=== PATIENT | male | born 1965 | race Caucasian/White ===

== ENCOUNTER 2016-06-09 14:27 | Inpatient (IN) | payer OTHER ==
[~2016-06-09] VITALS: Ht 175.3 cm; Wt 74.3 kg
[~2016-06-09 14:27] MED LIST: OXYC-57 PO; PANT40TA PO
[2016-06-09] MEDS ORDERED: SODIUM CHLORIDE 0.9% 1000ML 1,000 ML IV STA (14:43)
[2016-06-09] MEDS ORDERED: ALBUT/IPRATROP 3MG/0.5MG NEB 3 ML VIAL INH ONE (14:45)
--- NOTE | 2016-06-09 15:02 | DIAGNOSTIC IMAGING REPORT ---
CHEST ONE VIEW PORTABLE CLINICAL HISTORY: cough, fevers, chills COMPARISON STUDY: No previous studies for comparison. FINDINGS: Diffuse infiltrate of the right mid to lower hemithorax. Parenchymal infiltrate left base. No evidence for cardiac enlargement. IMPRESSION: Bilateral parenchymal infiltrates Electronically signed by: Chan Webster M.D. 06/09/2016 3:01 PM Dictated Date/Time: 06/09/2016 3:01 PM
[2016-06-09 15:29] VITALS: PULSE 82; O2SAT 94
[2016-06-09 15:42] LABS: HEMATOCRIT 38.2 % (42-52); MEAN CELL VOLUME 100.3 fL (80-100); MEAN CORPUSCULAR HEMOGLOBIN 36.2 pg (25-34); MEAN CORPUSCULAR HGB CONC 36.1 g/dl (32-36); MEAN PLATELET VOLUME 10.6 fL (7.4-10.4); PLATELET COUNT 248 K/uL (130-400); RED BLOOD COUNT 3.81 M/uL (4.7-6.1); WHITE BLOOD COUNT 12.28 K/uL (4.8-10.8)
[2016-06-09 16:22] LABS: ALKALINE PHOSPHATASE 291 U/L (45-117); ALT/SGPT 33 U/L (12-78); AST/SGOT 58 U/L (15-37); BLOOD UREA NITROGEN 11 mg/dl (7-18); BUN/CREATININE RATIO 13.6 (10-20); CALCIUM 9.8 mg/dl (8.5-10.1); CARBON DIOXIDE 24 mmol/L (21-32); CHLORIDE 99 mmol/L (98-107); CREATININE 0.84 mg/dl (0.60-1.40); GLUCOSE 120 mg/dl (70-99); MAGNESIUM 1.8 mg/dl (1.8-2.4); POTASSIUM 2.5 mmol/L (3.5-5.1); SODIUM 135 mmol/L (136-145)
[2016-06-09] MEDS ORDERED: LEVAQUIN 750MG / 150ML D5W IV STA (16:27)
[2016-06-09] MEDS ORDERED: MULTI-VITAMIN INFUSION INJ 10 ML, THIAMINE HCL INJ 100 MG, FoLIC ACID INJ 1 MG in SODIU... IV ONE (16:30)
[2016-06-09] MEDS ORDERED: POTASSIUM CHLR 20 MEQ / WTR 20 MEQ in PREMIXED WATER 100 ML IV STA (16:32)
[2016-06-09 16:48] LABS: BASO % 0.3 %; BASO ABS # 0.04 K/uL (0-0.2); COMPLETE YES; DOHLE BODIES 2+; IG% 5.4 %; LYMPH % 9.8 %; MONO % 14.4 %; NEUT % 70.1 %; TOXIC GRANULATION 2+
[2016-06-09] MEDS: POTASSIUM CHLR 10MEQ / WTR IV SCH ×2 (17:23→20:47)
[2016-06-09] MEDS ORDERED: ZOLPIDEM TARTRATE 5 MG TAB PO PRN (17:45)
[2016-06-09] MEDS ORDERED: VANCOMYCIN INJ 1,000 MG in SODIUM CHLORIDE 0.9% 250ML 250 ML IV STA (17:50)
[2016-06-09] MEDS ORDERED: ONDANSETRON INJ 2 MG/ML 2 ML VIAL IV PRN ×2 (18:00)
[2016-06-09] MEDS ORDERED: VANCOMYCIN CONSULT ACTIVE PRN (19:30)
[2016-06-09 19:43] VITALS: BP 181/88; PULSE 81; TEMP 37.1; O2SAT 90; Ht 175.3 cm; Wt 74.3 kg
[2016-06-09] MEDS: POTASSIUM CHLR 10 MEQ / WTR 10 MEQ in PREMIXED WATER 100 ML IV SCH ×2 (19:45→20:47)
--- NOTE | 2016-06-09 19:49 | History and Physical ---
History & Physical Date & Time of Service: Jun 09, 2016 at 19:36 Chief Complaint: Hypokalemia, Vomiting And Diarrhea Primary Care Physician: No Doctor, Assigned History of Present Illness Source: patient, family The patient is a 51-year-old male with significant alcohol dependency, who presents to emergency department with intractable nausea and vomiting, with no significant oral intake over the past several days. He reports 11 pound weight loss. And has had an intermittent productive cough for at least a week. Family History Patient reports no known family medical history. Social History Smoking Status: Current Every Day Smoker Smokeless Tobacco Use: No Alcohol Use: heavy Occupational Status: disabled Immunizations History of Influenza Vaccine: No History of Tetanus Vaccine?: No History of Pneumococcal: No History of Hepatitis B Vaccine: No Multi-Drug Resistant Organisms History of MDRO: No Allergies Coded Allergies: No Known Allergies (Verified Allergy, Unknown, 01/28/08) Home Medications No Active Prescriptions or Reported Meds Review of Systems The patient denies vision change, hearing change, sore throat, fevers, chills, sweats, blood in urine or stool, dysuria, urinary frequency or urgency, lightheadedness, dizziness, headache, memory loss, rash, abnormal bruising or bleeding, imbalance, focal weakness, night sweats, or allergy symptoms. The review of systems is otherwise negative other than for that already noted above, and at least 10 systems have been reviewed. Physical Exam Vital Signs Date Time Temp Pulse Resp B/P Pulse Ox O2 Delivery O2 Flow Rate FiO2 06/09/16 18:37 77 27 94 06/09/16 18:32 72 22 94 06/09/16 18:27 77 18 94 06/09/16 18:22 74 23 95 06/09/16 18:17 74 29 94 06/09/16 18:12 77 20 97 06/09/16 18:07 80 25 93 06/09/16 18:02 77 22 94 06/09/16 17:57 79 18 93 06/09/16 17:52 81 23 93 06/09/16 17:47 83 16 93 06/09/16 17:42 79 30 93 06/09/16 17:37 80 24 92 06/09/16 17:32 84 15 92 06/09/16 17:27 77 27 93 06/09/16 17:22 83 13 92 06/09/16 17:17 86 19 90 06/09/16 17:12 77 23 89 06/09/16 17:07 97 21 88 06/09/16 17:02 84 24 89 06/09/16 16:57 86 28 88 06/09/16 16:52 84 28 89 06/09/16 16:47 91 22 90 06/09/16 16:42 86 27 88 06/09/16 16:37 85 27 88 06/09/16 16:32 89 21 91 06/09/16 16:27 93 39 95 06/09/16 16:22 89 24 95 06/09/16 16:17 87 17 98 06/09/16 16:12 85 20 96 06/09/16 16:07 88 27 97 06/09/16 16:02 85 17 96 06/09/16 15:57 85 24 97 06/09/16 15:52 86 27 98 06/09/16 15:47 89 17 98 06/09/16 15:42 80 18 97 06/09/16 15:41 95 Room Air 06/09/16 15:39 79 06/09/16 15:37 183/90 06/09/16 15:29 82 18 94 Room Air 06/09/16 14:30 37.0 90 20 182/83 91 Room Air The patient is awake, alert and oriented 3, looks disheveled, chronically ill, lying in bed and in no acute distress. HEENT--PERRL, EOMI, mucous membranes and oropharynx dry. Neck--supple, no JVD or bruits, thyroid normal, trachea midline, no adenopathy. Heart--normal S1 and S2, no extra beats, no murmurs, rubs or gallops. Lungs--rhonchi wheezes bilaterally, mild respiratory distress, no accessory muscle use. Abdomen--normal bowel sounds and soft, tympanitic, distended, nontender. Extremities--no cyanosis, clubbing. There is bilaterally 2+ pitting edema. There are good distal pulses b/l. Dermatologic--skin is dry. Neurologic--cranial nerves II through XII grossly intact. Rheumatologic--normal range of motion, nontender, muscles and joints for age Psychiatric--normal affect. Diagnostics Laboratory Results Results Past 24 Hours Test 06/09/16 14:52 Range/Units White Blood Count 12.28 4.8-10.8 K/uL Red Blood Count 3.81 4.7-6.1 M/uL Hemoglobin 13.8 14.0-18.0 g/dL Hematocrit 38.2 42-52 % Mean Corpuscular Volume 100.3 80-100 fL Mean Corpuscular Hemoglobin 36.2 25-34 pg Mean Corpuscular Hemoglobin Concent 36.1 32-36 g/dl Platelet Count 248 130-400 K/uL Mean Platelet Volume 10.6 7.4-10.4 fL Neutrophils (%) (Auto) 70.1 % Lymphocytes (%) (Auto) 9.8 % Monocytes (%) (Auto) 14.4 % Eosinophils (%) (Auto) 0.0 % Basophils (%) (Auto) 0.3 % Neutrophils # (Auto) 8.61 1.4-6.5 K/uL Lymphocytes # (Auto) 1.20 1.2-3.4 K/uL Monocytes # (Auto) 1.77 0.11-0.59 K/uL Eosinophils # (Auto) 0.00 0-0.5 K/uL Basophils # (Auto) 0.04 0-0.2 K/uL RDW Standard Deviation 45.5 36.4-46.3 fL RDW Coefficient of Variation 12.5 11.5-14.5 % Immature Granulocyte % (Auto) 5.4 % Immature Granulocyte # (Auto) 0.66 0.00-0.02 K/uL Nucleated RBC Absolute Count (auto) 0.02 0-0 K/uL Nucleated Red Blood Cells % 0.2 % Toxic Granulation 2+ Dohle Bodies 2+ Sodium Level 135 136-145 mmol/L Potassium Level 2.5 3.5-5.1 mmol/L Chloride Level 99 98-107 mmol/L Carbon Dioxide Level 24 21-32 mmol/L Anion Gap 13.0 3-11 mmol/L Blood Urea Nitrogen 11 7-18 mg/dl Creatinine 0.84 0.60-1.40 mg/dl Est Creatinine Clear Calc Drug Dose 100.7 ml/min Estimated GFR () 115.9 Estimated GFR (Non- 100.0 BUN/Creatinine Ratio 13.6 10-20 Random Glucose 120 70-99 mg/dl Calcium Level 9.8 8.5-10.1 mg/dl Magnesium Level 1.8 1.8-2.4 mg/dl Total Bilirubin 0.5 0.2-1 mg/dl Direct Bilirubin 0.2 0-0.2 mg/dl Aspartate Amino Transf (AST/SGOT) 58 15-37 U/L Alanine Aminotransferase (ALT/SGPT) 33 12-78 U/L Alkaline Phosphatase 291 45-117 U/L Total Creatine Kinase 170 39-308 U/L Troponin I < 0.015 0-0.045 ng/ml Total Protein 7.8 6.4-8.2 gm/dl Albumin 2.5 3.4-5.0 gm/dl Microbiology Results 06/09/16 Blood Culture, Received Pending 06/09/16 Blood Culture, Received Pending 06/09/16 Gram Stain, Received Pending 06/09/16 Sputum Culture, Received Pending Diagnostic Radiology Patient Name: SIVAKUMAR BRANCH JR Unit Number: [id number] Dictated: 06/09/161500 Transcribed: 06/09/16 1501 MS Printed Date/Time: [~ rep prt dt]/[~ rep prt tm] [~ rep ct labl] - [~ rep ct ivnm] [facility] [place] [address] Dictated: 06/09/16 1501 Transcribed: 06/09/16 1501 MS Printed Date/Time: [~ rep prt dt]/[~ rep prt tm] [~ rep ct labl] - [~ rep ct ivnm] CLINICAL HISTORY: cough, fevers, chills COMPARISON STUDY: No previous studies for comparison. FINDINGS: Diffuse infiltrate of the right mid to lower hemithorax. Parenchymal infiltrate left base. No evidence for cardiac enlargement. IMPRESSION: Bilateral parenchymal infiltrates Electronically signed by: Chan Webster M.D. 06/09/2016 3:01 PM Dictated Date/Time: 06/09/2016 3:01 PM The status of this report is Signed. Draft = Not yet reviewed or approved by Radiologist. Signed = Reviewed and approved by Radiologist. <AttendingPhy></AttendingPhy> <FamilyPhy>No Doctor, Assigned</FamilyPhy> < PrimaryPhy>No Doctor, Assigned</PrimaryPhy> <UnitNumber>[id number]</UnitNumber> <VisitNumber>[id number]</VisitNumber> <PatientName>JOSE CARLOSSIVAKUMAR CAMILO PINEDA</ PatientName> <DateOfBirth>1965</DateOfBirth> <Location>CJUDY</Location> < ServiceDate>06/09/16</ServiceDate> <MNE>ESINDI</MNE> <OrderingPhy>Nghia Hinojosa M.D.</OrderingPhy> <OrderingPhyMNE>f rep ord dr lopez</OrderingPhyMNE> < DictatingPhyMNE>f rep dict dr lopez</DictatingPhyMNE> <CCListMNE>f rep ct jessica</ CCListMNE> <AdmittingPhyMNE>f pt admit dr lopez</AdmittingPhyMNE> <AttendingPhyMNE >f pt attend dr lopez</AttendingPhyMNE> <ConsultingPhyMNE>f pt consult dr lopez</ConsultingPhyMNE> <FamilyPhyMNE>f pt fam dr lopez</FamilyPhyMNE> <OtherPhyMNE>f pt other dr lopez</OtherPhyMNE> < PrimaryPhyMNE>f pt prim care dr lopez</PrimaryPhyMNE> <ReferringPhyMNE>f pt referring dr lopez</ReferringPhyMNE> EKG EKG shows normal sinus rhythm at 83 bpm, there are no acute ST-T changes. Impression Assessment and Plan Bilateral pneumonia with hypoxia--the patient will be admitted to the telemetry unit. Placed on vancomycin IV per renal dosing, Zosyn 3.375 mg IV every 8 hours , levofloxacin 500 mg IV daily, guaifenesin extended release 600 mg by mouth twice a day, Solu-Medrol 40 mg IV every 8 hours, Xopenex with Atrovent nebulizers to use every 6 hours while awake and every 2 hours when necessary. Alcohol abuse--patient reportedly has not had a drink in a few days. He does not appear to be actively going through withdrawal at this point, but will need to be monitored for so. He'll be started on Librium 25 mg by mouth twice a day , lorazepam IV when necessary, will also have when necessary lorazepam available for seizures. He'll be placed on banana bag IV daily, followed by IV fluids. Start clonidine 0.2 mg by mouth twice a day, and Lopressor 5 mg IV every 4 hours when necessary systolic blood pressure greater than 150. Hypokalemia--potassium was 2.5, magnesium was 1.8. Banana bag as noted above, then normal saline with potassium chloride 20 mEq 150 ML's per hour. Magnesium sulfate 1 g IV 1 now, and for standard 10 mEq potassium chloride riders. We' ll follow serial BMP and magnesium levels. Level of Care Telemetry Advanced Directives Existing Advance Directive: No Existing Living Will: No Existing Power of Deflash And Wash Operator: No Resuscitation Status FULL RESUSCITATION VTE Prophylaxis VTE Risk Assessment Done? Y/N: Yes Risk Level: Moderate Given or contraindicated: SCD's
[2016-06-09] MEDS ORDERED: VANCOMYCIN INJ 1,750 MG in SODIUM CHLORIDE 0.9% 500ML 500 ML IV SCH (20:00)
[2016-06-09] MEDS ORDERED: PIPERACILL/TAZOBAC CONSULT ACTIVE PRN (20:00)
[2016-06-09] MEDS ORDERED: METHYLPREDNISOLONE IV 60 MG in SYRINGE 0 ML IV SCH (20:00)
[2016-06-09] MEDS ORDERED: PIPERACILL/TAZOBAC IV 3.375 GM in DEXTROSE 5% 100ML 100 ML IV ONE (20:00)
[2016-06-09] MEDS ORDERED: MAGNESIUM SULFATE 1GM / D5W 1 GM in PREMIXED IN D5W 100 ML IV ONE (20:00)
[2016-06-09] MEDS ORDERED: LORAZEPAM INJ 1 MG in SYRINGE 0.5 ML IV PRN (20:15)
[2016-06-09] MEDS ORDERED: CLONIDINE HCL 0.1 MG TAB PO ONE (20:30)
[2016-06-09] MEDS ORDERED: CHLORDIAZEPOXIDE 25 MG CAP PO ONE (20:30)
[2016-06-09] MEDS: METHYLPREDNISOLONE IV 40 MG in SYRINGE 0 ML IV SCH (20:45)
[2016-06-09] MEDS ORDERED: INFLUENZA ADMINISTRATION CHARGE ONE (20:45)
[2016-06-09] MEDS ORDERED: INFLUENZA VIRUS QUAD VACCINE 0.5 ML SYR IM. ONE (20:45)
[2016-06-09] MEDS: CLONIDINE HCL 0.1 MG TAB PO SCH (20:46)
[2016-06-09] MEDS: GUAIFENESIN 600 MG TABCR PO SCH (20:46)
[2016-06-09] MEDS: CHLORDIAZEPOXIDE 25 MG CAP PO SCH (20:46)
[2016-06-09] MEDS ORDERED: LEVALBUTEROL/IPRATROPIUM NEB INH SCH (21:00)
--- NOTE | 2016-06-09 21:17 | Pharmacy Progress Note ---
Pharmacy Antibiotic Consult Date of Service: Jun 09, 2016. Pharmacy Dosing Scope Pharmacy is consulted to initiate Vancomycin and Zosyn IV dosing therapies for bilateral pneumonia, order appropriate labs and adjust drug dose/frequency. Subjective The patient is a 51 year old male admitted on Jun 09, 2016 at 17:48. Objective Height (Feet): 5 Height (Inches): 9.00 Weight (Kilograms): 71.700 Lab Results (24hrs): Laboratory Tests Test 06/09/16 14:52 BUN/Creatinine Ratio 13.6 Blood Urea Nitrogen 11 mg/dl Creatinine 0.84 mg/dl White Blood Count 12.28 K/uL Red Blood Count 3.81 M/uL Hemoglobin 13.8 g/dL Hematocrit 38.2 % Mean Corpuscular Volume 100.3 fL Mean Corpuscular Hemoglobin 36.2 pg Mean Corpuscular Hemoglobin Concent 36.1 g/dl Platelet Count 248 K/uL Mean Platelet Volume 10.6 fL Neutrophils (%) (Auto) 70.1 % Lymphocytes (%) (Auto) 9.8 % Monocytes (%) (Auto) 14.4 % Eosinophils (%) (Auto) 0.0 % Basophils (%) (Auto) 0.3 % Neutrophils # (Auto) 8.61 K/uL Lymphocytes # (Auto) 1.20 K/uL Monocytes # (Auto) 1.77 K/uL Eosinophils # (Auto) 0.00 K/uL Basophils # (Auto) 0.04 K/uL Micro Results: Item Value Date Time Blood Culture Received 06/09/16 1543 Blood Pending Gram Stain Received 06/09/16 1530 Sputum Expectorated Sputum Pending Blood Culture Received 06/09/16 1452 Blood Pending Recent Pertinent Medications Item Value Date Time Levofloxacin 500 100 ml @ 100 mls/hr 06/09/16 2200 mg/Prmx DAILY@2200/IV Note, pt did NOT receive Levaquin 750mg ordered in the ED Piperacillin Sod/ 115 ml @ 200 mls/hr 06/09/161999 Tazobactam Sod TODAY@2000 ONCE/IV 06/09/162043 3.375 gm/Dextrose Assessment & Plan Pharmacy has been consulted to dose and monitor Vancomycin and Zosyn IV therapies for bilateral pneumonia. VANCOMYCIN Loading dose: Vancomycin 1750 mg (~25mg/kg) IV X 1 dose then: Vancomycin 1250 mg (~18mg/kg) IV every 12 hours. * Estimated P'kinetic levels: ke= 0.0874/hr, t1/2= 8 hrs * Goal trough level estimate: between 15 - 20 mcg/mL. * Trough level has been ordered for: ~30 minutes before the 4th dose. ZOSYN * Zosyn 3.375gm IV x 1 dose, then Zosyn 3.375gm IV every 8 hours extended infusion for bilateral pneumonia and CrCl greater than 20mL/min (CrCl ~100mL/min ). Pharmacy will continue to follow and will adjust dose/frequency as necessary. Thank you
--- NOTE | 2016-06-09 21:44 | EMERGENCY ROOM VISIT NOTE ---
History Report prepared by Linsey: Clair Jones Under the Supervision of: Dr. Nghia Hinojosa M.D. First contact with patient: 14:39 Chief Complaint: FLU LIKE SX Stated Complaint: FLU History of Present Illness The patient is a 51 year old male who presents to the Emergency Room with complaints of a persistent productive cough for the past 4 days. He reports the cough has prevented him from sleeping for the past 3 nights. He has not been able to eat or drink as normal. He reports having shortness of breath and right ear pain at times. He has wheezes, but not after coughing up mucous. He denies any shaking or syncope. He has not taken any medications today. He took Mucinex a couple days ago, but experienced no relief. He drinks alcohol daily, but has not had anything to drink in the last 4 days. He does not drink to the point of blacking out. He is a smoker. Source of History: patient Onset: 4 days ago Position: other (global) Quality: other (productive cough) Timing: other (persistent) Associated Symptoms: + SOB Note: Pt reports right ear pain. Pt denies shaking or syncope. Review of Systems See HPI for pertinent positives & negatives. A total of 10 systems reviewed and were otherwise negative. Past Medical & Surgical Medical Problems: (1) Hypokalemia (2) No Known Active Medical Problems (3) Vomiting and diarrhea Family History Patient reports no known family medical history. Social History Smoking Status: Current Every Day Smoker Alcohol Use: heavy Marital Status: Occupation Status: unemployed Current/Historical Medications No Active Prescriptions or Reported Meds Allergies Coded Allergies: No Known Allergies (Verified Allergy, Unknown, 01/28/08) Physical Exam Vital Signs Date Time Temp Pulse Resp B/P Pulse Ox O2 Delivery O2 Flow Rate FiO2 06/09/16 17:47 83 16 93 06/09/16 17:42 79 30 93 06/09/16 17:37 80 24 92 06/09/16 17:32 84 15 92 06/09/16 17:27 77 27 93 06/09/16 17:22 83 13 92 06/09/16 17:17 86 19 90 06/09/16 17:12 77 23 89 06/09/16 17:07 97 21 88 06/09/16 17:02 84 24 89 06/09/16 16:57 86 28 88 06/09/16 16:52 84 28 89 06/09/16 16:47 91 22 90 06/09/16 16:42 86 27 88 06/09/16 16:37 85 27 88 06/09/16 16:32 89 21 91 06/09/16 16:27 93 39 95 06/09/16 16:22 89 24 95 06/09/16 16:17 87 17 98 06/09/16 16:12 85 20 96 06/09/16 16:07 88 27 97 06/09/16 16:02 85 17 96 06/09/16 15:57 85 24 97 06/09/16 15:52 86 27 98 06/09/16 15:47 89 17 98 06/09/16 15:42 80 18 97 06/09/16 15:41 95 Room Air 06/09/16 15:39 79 06/09/16 15:37 183/90 06/09/16 15:29 82 18 94 Room Air 06/09/16 14:30 37.0 90 20 182/83 91 Room Air Physical Exam GENERAL: Patient is unwell appearing and in minimal distress. HEENT: No acute trauma, normocephalic atraumatic, mucous membranes dry, no nasal congestion, no scleral icterus. NECK: No stridor, no adenopathy, no meningismus, trachea is midline. LUNGS: Tachypneic, dyspneic. Decreased breath sounds in the left lower lobe. Mild wheezing throughout lungs. Productive thick green mucus cough. HEART: Tachycardic rate and regular rhythm. No murmurs, rubs, gallops appreciated. ABDOMEN: Soft, nontender, bowel sounds positive, no masses appreciated, no peritonitis. BACK: No midline tenderness, no CVA tenderness EXTREMITIES: Normal motion all extremities, no cyanosis, no edema. NEUROLOGIC: Alert and oriented, no acute motor or sensory deficits, no focal weakness, cranial nerves grossly intact. SKIN: No rash, no jaundice, no diaphoresis. Medical Decision & Procedures ER Provider Diagnostic Interpretation: X ray results are stated below per my interpretation and the radiologist's interpretation. CHEST ONE VIEW PORTABLE CLINICAL HISTORY: cough, fevers, chills COMPARISON STUDY: No previous studies for comparison. FINDINGS: Diffuse infiltrate of the right mid to lower hemithorax. Parenchymal infiltrate left base. No evidence for cardiac enlargement. IMPRESSION: Bilateral parenchymal infiltrates Electronically signed by: Chan Webster M.D. 06/09/2016 3:01 PM Dictated Date/Time: 06/09/2016 3:01 PM Laboratory Results 06/09/16 14:52 Red Blood Count 3.81, Mean Corpuscular Volume 100.3, Mean Corpuscular Hemoglobin 36.2, Mean Corpuscular Hemoglobin Concent 36.1, Mean Platelet Volume 10.6, Neutrophils (%) (Auto) 70.1, Lymphocytes (%) (Auto) 9.8, Monocytes (%) ( Auto) 14.4, Eosinophils (%) (Auto) 0.0, Basophils (%) (Auto) 0.3, Neutrophils # (Auto) 8.61, Lymphocytes # (Auto) 1.20, Monocytes # (Auto) 1.77, Eosinophils # ( Auto) 0.00, Basophils # (Auto) 0.04 06/09/16 14:52 Test 06/09/16 14:52 White Blood Count 12.28 K/uL (4.8-10.8) Red Blood Count 3.81 M/uL (4.7-6.1) Hemoglobin 13.8 g/dL (14.0-18.0) Hematocrit 38.2 % (42-52) Mean Corpuscular Volume 100.3 fL (80-100) Mean Corpuscular Hemoglobin 36.2 pg (25-34) Mean Corpuscular Hemoglobin Concent 36.1 g/dl (32-36) Platelet Count 248 K/uL (130-400) Mean Platelet Volume 10.6 fL (7.4-10.4) Neutrophils (%) (Auto) 70.1 % Lymphocytes (%) (Auto) 9.8 % Monocytes (%) (Auto) 14.4 % Eosinophils (%) (Auto) 0.0 % Basophils (%) (Auto) 0.3 % Neutrophils # (Auto) 8.61 K/uL (1.4-6.5) Lymphocytes # (Auto) 1.20 K/uL (1.2-3.4) Monocytes # (Auto) 1.77 K/uL (0.11-0.59) Eosinophils # (Auto) 0.00 K/uL (0-0.5) Basophils # (Auto) 0.04 K/uL (0-0.2) RDW Standard Deviation 45.5 fL (36.4-46.3) RDW Coefficient of Variation 12.5 % (11.5-14.5) Immature Granulocyte % (Auto) 5.4 % Immature Granulocyte # (Auto) 0.66 K/uL (0.00-0.02) Nucleated RBC Absolute Count (auto) 0.02 K/uL (0-0) Nucleated Red Blood Cells % 0.2 % Toxic Granulation 2+ Dohle Bodies 2+ Anion Gap 13.0 mmol/L (3-11) Est Creatinine Clear Calc Drug Dose 100.7 ml/min Estimated GFR () 115.9 Estimated GFR (Non- 100.0 BUN/Creatinine Ratio 13.6 (10-20) Calcium Level 9.8 mg/dl (8.5-10.1) Magnesium Level 1.8 mg/dl (1.8-2.4) Total Bilirubin 0.5 mg/dl (0.2-1) Direct Bilirubin 0.2 mg/dl (0-0.2) Aspartate Amino Transf (AST/SGOT) 58 U/L (15-37) Alanine Aminotransferase (ALT/SGPT) 33 U/L (12-78) Alkaline Phosphatase 291 U/L (45-117) Total Creatine Kinase 170 U/L (39-308) Troponin I < 0.015 ng/ml (0-0.045) Total Protein 7.8 gm/dl (6.4-8.2) Albumin 2.5 gm/dl (3.4-5.0) Laboratory results as reviewed by me. Medications Administered Medications (Trade) Dose Ordered Sig/Tiffany Route Start Time Stop Time Status Last Admin Dose Admin Sodium Chloride (Nss 1000ml) 1,000 ml @ 999 mls/hr Q1H1M STAT IV 06/09/16 14:43 06/09/16 15:43 DC 06/09/16 15:39 999 MLS/HR Albuterol/ Ipratropium 12 ml 12 ml ONE ONCE INH 06/09/16 14:45 06/09/16 14:46 DC 06/09/16 14:45 12 ML Multivitamins 10 ml/Thiamine HCl 100 mg/Folic Acid 1 mg/Sodium Chloride 1,011.2 ml @ 500 mls/ hr Q2H2M ONCE IV 06/09/16 16:30 06/09/16 18:31 DC 06/09/16 17:23 500 MLS/HR Potassium Chloride/Prmx (Kcl 10 Meq / Wtr/Premixed Water) 100 ml @ 100 mls/hr TODAY@1700,1800 IV 06/09/16 17:00 06/09/16 18:59 DC 06/09/16 17:23 100 MLS/HR ECG Indication: tachycardia Rate (beats per minute): 83 Rhythm: normal sinus Findings: no acute ischemic change, no ectopy, other (hypertensive changes) ED Course 1440: The patient was evaluated in room C10. A complete history and physical exam was performed. 1443: NSS 1000 ml @ 999 mls/hr IV. 1445: Duoneb 12 ml INH. 1607: I reevaluated the patient. His breathing has improved with the breathing treatment, but he is coughing more. 1627: Levofloxacin 750 mg IV. 1628: I discussed the patient's case with Dr. Tran [facility] - hospitalist. The patient will be evaluated for further treatment and disposition. 1629: Upon reevaluation, the patient is doing well. Discussed results and treatment plan with the patient. He verbalized understanding and agreement with the treatment plan. The patient will be evaluated for further management. 1630: Multivitamins 10 ml/Thiamine HCl 100 mg/Folic Acid 1 mg/Sodium Chloride 1011.2 ml @ 500 mls/hr IV. 1632: Potassium Chloride 20 meq/Prmx 100 ml @ 50 mls/hr IV. Medical Decision Differential: Infectious, Reactive Airway Disease, Pneumonia, Pneumothorax, COPD , CHF, ACS, Pulmonary Embolism, MSK, GI, Dissection, amongst other etiologies entertained. 51 yr old alcoholic with 4 days worsening cough, weight loss, lack of appetite and weakness. Chronically unwell appearing. Fluids and Banana bag given. CXR with bilateral infiltrates, elevated wbc and fevers. Early sepsis though not septic shock. He has severely low K as well. Will need to come in for further treatment and evaluation. Empiric Levaquin given and will likely need further abx given etoh history. K ordered as well. Stable without shock nor meningitis findings. Consults Time Called: 1625 Consulting Physician: Dr. Tran [facility] - hospitalist Returned Call: [phone] Discussed the patient's case. The patient will be evaluated for further treatment and disposition. Impression Primary Impression: Bilateral pneumonia Additional Impressions: Hypokalemia Malnutrition Scribe Attestation The scribe's documentation has been prepared under my direction and personally reviewed by me in its entirety. I confirm that the note above accurately reflects all work, treatment, procedures, and medical decision making performed by me. Departure Information Dispostion Being Evaluated By Hospitalist Prescriptions No Active Prescriptions or Reported Meds Referrals No Doctor, Assigned (PCP) Patient Instructions My [facility] Problem Qualifiers Primary Impression: Bilateral pneumonia Pneumonia type: due to unspecified organism Lung location: lower lobe of lung Qualified Codes: J18.9 - Pneumonia, unspecified organism
[2016-06-09] MEDS: IPRATROPIUM BROMIDE NEB SOLN 0.02% 2.5 ML VIAL INH SCH (21:55)
[2016-06-09] MEDS: LEVALBUTEROL 1.25MG/0.5ML NEB INH SCH (21:55)
[2016-06-09 21:57] VITALS: PULSE 116; O2SAT 97
[2016-06-09] MEDS ORDERED: LEVOFLOXACIN / D5W 500 MG in PREMIXED IN D5W 100 ML IV SCH (22:00)
[2016-06-09 23:11] VITALS: BP 147/70; PULSE 73; TEMP 37.1; O2SAT 95
[2016-06-09] MEDS: LORAZEPAM 2 MG/ML 1 ML VIAL IV PRN (23:17)
[2016-06-10] VITALS (9 sets, daily range): BP systolic 157–180; BP diastolic 70–85; PULSE 58–88; TEMP 36.3–37; O2SAT 93–100
[2016-06-10] MEDS: IPRATROPIUM BROMIDE NEB SOLN 0.02% 2.5 ML VIAL INH SCH ×4 (01:45→20:25)
[2016-06-10] MEDS: LEVALBUTEROL 1.25MG/0.5ML NEB INH SCH ×4 (01:45→20:25)
[2016-06-10] MEDS: PIPERACILL/TAZOBAC IV 3.375 GM in DEXTROSE 5% 100ML 100 ML IV SCH ×2 (02:39→10:22)
[2016-06-10] MEDS: METHYLPREDNISOLONE IV 40 MG in SYRINGE 0 ML IV SCH ×2 (04:51→16:39)
[2016-06-10 07:27] LABS: HEMATOCRIT 34.9 % (42-52); MEAN CORPUSCULAR HEMOGLOBIN 34.8 pg (25-34); MEAN CORPUSCULAR HGB CONC 35.5 g/dl (32-36); MEAN PLATELET VOLUME 10.8 fL (7.4-10.4); PLATELET COUNT 222 K/uL (130-400); RED BLOOD COUNT 3.56 M/uL (4.7-6.1); WHITE BLOOD COUNT 9.54 K/uL (4.8-10.8)
[2016-06-10 07:36] LABS: PARTIAL THROMBOPLASTIN RATIO 1.4; PROTHROMBIN TIME (PATIENT) 10.7 SECONDS (9.0-12.0)
[2016-06-10] MEDS ORDERED: VANCOMYCIN INJ 1,250 MG in SODIUM CHLORIDE 0.9% 250ML 250 ML IV SCH (08:00)
[2016-06-10] MEDS ORDERED: MULTI-VITAMIN INFUSION INJ 10 ML, THIAMINE HCL INJ 100 MG, FoLIC ACID INJ 1 MG in SODIU... IV SCH (08:00)
[2016-06-10 08:13] LABS: BUN/CREATININE RATIO 17.5 (10-20); CALCIUM 8.9 mg/dl (8.5-10.1); CREATININE 0.65 mg/dl (0.60-1.40); MAGNESIUM 2.7 mg/dl (1.8-2.4); POTASSIUM 2.8 mmol/L (3.5-5.1)
[2016-06-10 08:14] LABS: COMPLETE YES; DOHLE BODIES 1+; HYPERSEGMENTED POLYS 1+; LARGE PLATELETS 1+; LYMPH ABS # 1.34 K/uL (1.2-3.4); MYELOCYTE % 0.9 %; TOXIC GRANULATION 2+
[2016-06-10] MEDS: CHLORDIAZEPOXIDE 25 MG CAP PO SCH ×2 (08:20→20:50)
[2016-06-10] MEDS: CEROVITE ADV FORMULA TAB PO SCH (08:23)
[2016-06-10] MEDS: THIAMINE HCL INJ 200 MG in SODIUM CHLORIDE 0.9% 50ML 50 ML IV SCH ×2 (08:24→20:56)
[2016-06-10] MEDS: CLONIDINE HCL 0.1 MG TAB PO SCH ×2 (08:24→20:51)
[2016-06-10] MEDS: GUAIFENESIN 600 MG TABCR PO SCH ×2 (08:24→20:51)
[2016-06-10] MEDS: POTASSIUM CHLORIDE 20 MEQ TABCR PO SCH ×3 (09:30→16:40)
[2016-06-10] MEDS ORDERED: PANTOprazole INJ 40 MG in SYRINGE 0 ML IV SCH (11:00)
[2016-06-10] MEDS ORDERED: NSS + 20MEQ KCL 1000ML 1,000 ML IV SCH (14:00)
[2016-06-10] MEDS ORDERED: ACETYLCYSTEINE IV 21 HOUR REGIMEN IV STA (14:03)
[2016-06-10] MEDS ORDERED: ACETYLCYSTEINE IV ONE ×2 (14:30→15:30)
[2016-06-10] MEDS ORDERED: DEXTROSE 5% IV ONE (14:30)
[2016-06-10] MEDS ORDERED: D5W IV ONE (15:30)
[2016-06-10] MEDS ORDERED: ACETYLCYSTEINE IV SCH (19:30)
[2016-06-10] MEDS ORDERED: D5W IV SCH (19:30)
[2016-06-10] MEDS ORDERED: POTASSIUM CHLR 20 MEQ / WTR 20 MEQ in PREMIXED WATER 100 ML IV STA (19:56)
[2016-06-10] MEDS: POTASSIUM CHLR 10MEQ / WTR IV SCH ×2 (20:18→22:03)
--- NOTE | 2016-06-10 20:18 | Progress Note ---
Subjective Date of Service: Jun 10, 2016. Subjective Pt evaluation today including: conversation w/ patient, physical exam, chart review, lab review, review of studies (cxr), review of inpatient medication list Pain: denies PO Intake: fair Voiding: no voiding problems tele stable overnight he is coughing up copious amounts of purulent sputum reports ongoing alcohol use - liquor he also told nursing staff that he has been taking - for many years - about 15 tabs of Tylenol PM at HS for insomnia he reports significant depression much of it due to having 3 of his 5 children already 1 of his 2 children still living has significant disabilities he is unemployed and cannot find sustainable work he denies any history of etoh withdrawal Problem List Medical Problems: (1) Bilateral pneumonia Status: Acute (2) Malnutrition Status: Acute Review of Systems Constitutional: + fatigue, No chills, No fever Respiratory: + cough, + sputum, + wheezing Cardiac: No PND, No chest pain, No edema, No orthopnea Abdomen: No nausea, No pain, No vomiting Objective Vital Signs Date Time Temp Pulse Resp B/P Pulse Ox O2 Delivery O2 Flow Rate FiO2 06/10/16 19:25 37.0 78 18 180/82 97 Nasal Cannula 2.0 06/10/16 16:00 Nasal Cannula 2.0 06/10/16 16:00 Nasal Cannula 2.0 06/10/16 15:12 36.3 59 18 165/84 95 Nasal Cannula 2.0 06/10/16 14:19 88 16 97 Nasal Cannula 2.0 06/10/16 12:00 Nasal Cannula 2.0 06/10/16 11:59 36.6 65 16 167/82 95 Room Air 06/10/16 08:00 Nasal Cannula 2.0 06/10/16 07:45 36.8 58 24 167/70 100 Nasal Cannula 2.0 06/10/16 06:50 67 14 96 Nasal Cannula 2.0 06/10/16 04:00 Nasal Cannula 2.0 06/10/16 03:24 37.0 61 17 157/72 93 Nasal Cannula 2.0 06/09/16 23:59 Nasal Cannula 2.0 06/09/16 23:11 37.1 73 17 147/70 95 Nasal Cannula 2.0 06/09/16 21:57 116 14 97 Nasal Cannula 3.0 Physical Exam General Appearance: no apparent distress, + pertinent finding (coughing up purulent sputum ) ENT: pharynx normal, + pertinent finding (very poor dentition ) Neck: no JVD Respiratory/Chest: no respiratory distress, no accessory muscle use, + rales ( dense rales right base; mild rales left base), + wheezing (mild end-exp) Cardiovascular: regular rate, rhythm, no gallop, no murmur Abdomen: normal bowel sounds, non tender, soft, no organomegaly Extremities: no pedal edema Neurologic/Psychiatric: alert, oriented x 3, + depressed affect Skin: + pallor Laboratory Results Last 24 Hours Test 06/10/16 07:03 06/10/16 14:20 06/10/16 18:50 White Blood Count 9.54 K/uL Red Blood Count 3.56 M/uL Hemoglobin 12.4 g/dL Hematocrit 34.9 % Mean Corpuscular Volume 98.0 fL Mean Corpuscular Hemoglobin 34.8 pg Mean Corpuscular Hemoglobin Concent 35.5 g/dl Platelet Count 222 K/uL Mean Platelet Volume 10.8 fL RDW Standard Deviation 44.2 fL RDW Coefficient of Variation 12.4 % Neutrophils % (Manual) 79.0 % Lymphocytes % (Manual) 14.0 % Monocytes % (Manual) 6.1 % Myelocytes % 0.9 % Neutrophils # (Manual) 7.54 K/uL Total Absolute Neutrophils 7.54 K/uL Lymphocytes # (Manual) 1.34 K/uL Total Absolute Lymphocytes 1.34 K/uL Monocytes # (Manual) 0.58 K/uL Myelocytes # 0.09 K/uL Hypersegmented Polys 1+ Toxic Granulation 2+ Dohle Bodies 1+ Large Platelets 1+ Prothrombin Time 10.7 SECONDS Prothromb Time International Ratio 1.0 Activated Partial Thromboplast Time 36.2 SECONDS Partial Thromboplastin Ratio 1.4 Sodium Level 138 mmol/L Potassium Level 2.8 mmol/L 2.5 mmol/L Chloride Level 104 mmol/L Carbon Dioxide Level 23 mmol/L Anion Gap 11.0 mmol/L Blood Urea Nitrogen 11 mg/dl Creatinine 0.65 mg/dl Est Creatinine Clear Calc Drug Dose 131.5 ml/min Estimated GFR () 128.7 Estimated GFR (Non- 111.1 BUN/Creatinine Ratio 17.5 Random Glucose 129 mg/dl Calcium Level 8.9 mg/dl Magnesium Level 2.7 mg/dl Total Bilirubin 0.8 mg/dl Direct Bilirubin 0.4 mg/dl Aspartate Amino Transf (AST/SGOT) 226 U/L Alanine Aminotransferase (ALT/SGPT) 103 U/L Alkaline Phosphatase 389 U/L Total Protein 6.4 gm/dl Albumin 1.9 gm/dl Acetaminophen Level < 2 ug/ml Assessment and Plan 51yo female with: 1. acute hypoxic respiratory failure 2nd to b/l community-acquired strep pneumonia - ok to d/c zosyn and vanco continue the levaquin but increase to 750mg once daily follow blood cultures 2. community acquired pneumonia, b/l, 2nd to strep pneumoniae - see above supportive care o2 nebs 3. wheezing/reactive bronchitis - agree with steroids but lower to q12h could have underlying, undiagnosed COPD nebs, mucinex, O2, incentive spirometry 4. abnormal LFTs - yesterday's LFTs were lower than today's this was felt to be due to etoh alone HOWEVER, in light of copious tylenol use, perhaps the worsening today is from delayed tylenol effect? checked tylenol level - < 2 regardless will Rx with mucomyst protocol repeat LFTs and INR in am 5. hypokalemia - 2nd to poor oral intake, alcoholism, etc. aggressive IV/PO replacement repeat K tonight and again in AM 6. macrocytic anemia - folic acid supplementation check b12 level AM 7. alcoholism - MVI/thiamine/folic acid supplementation; watch for DTs on librium protocol 8. elevated BP w/o dx of HTN - clonidine added yesterday; still high could be essential HTN or from etoh withdrawal or both add nifedipine xr 30mg daily 9. DVT proph - heparin TID 10. FEN - diet as tolerated; NS fluids; replace K; mag is normal. 11. depression - psych consultation 12. protein calorie malnutrition - mod-severe - MVI, thiamine, folic acid, boost BID may need PT, OT consultations Continued [facility] stay due to: multiple IV medications needed Discharge planning: home
[2016-06-10] MEDS ORDERED: NIFEdipine 30 MG CR TAB PO ONE (20:30)
[2016-06-10] MEDS ORDERED: LEVOFLOXACIN / D5W 750 MG in PREMIXED IN D5W 100 ML IV SCH (22:00)
[2016-06-10] MEDS ORDERED: LEVOFLOXACIN 750MG / D5W IV SCH (22:00)
[2016-06-10] MEDS: HEPARIN SOD 5000 UNIT/0.5 ML CARP SQ SCH (22:45)
[2016-06-10] MEDS: LORAZEPAM 2 MG/ML 1 ML VIAL IV PRN (23:08)
[2016-06-11] MEDS: IPRATROPIUM BROMIDE NEB SOLN 0.02% 2.5 ML VIAL INH SCH ×3 (02:01→19:59)
[2016-06-11] MEDS: LEVALBUTEROL 1.25MG/0.5ML NEB INH SCH ×3 (02:01→19:59)
[2016-06-11 03:15] VITALS: BP 179/92; PULSE 61; TEMP 36.8; O2SAT 95
[2016-06-11] MEDS: METHYLPREDNISOLONE IV 40 MG in SYRINGE 0 ML IV SCH (03:22)
[2016-06-11] MEDS: HEPARIN SOD 5000 UNIT/0.5 ML CARP SQ SCH ×3 (06:23→20:39)
[2016-06-11] MEDS ORDERED: BOOST VANILLA PO SCH ×4 (07:30→19:00)
[2016-06-11] MEDS ORDERED: VANCOMYCIN TROUGH SCH (07:30)
[2016-06-11 07:36] VITALS: PULSE 79; O2SAT 96
[2016-06-11 07:38] LABS: HEMATOCRIT 34.2 % (42-52); MEAN CELL VOLUME 96.6 fL (80-100); MEAN CORPUSCULAR HEMOGLOBIN 34.7 pg (25-34); MEAN PLATELET VOLUME 10.9 fL (7.4-10.4); PLATELET COUNT 266 K/uL (130-400); RED BLOOD COUNT 3.54 M/uL (4.7-6.1); WHITE BLOOD COUNT 19.52 K/uL (4.8-10.8)
[2016-06-11 07:47] LABS: INR 1.1 (0.9-1.1); PROTHROMBIN TIME (PATIENT) 11.3 SECONDS (9.0-12.0)
[2016-06-11 08:08] LABS: BUN/CREATININE RATIO 20.6 (10-20); CREATININE 0.63 mg/dl (0.60-1.40); MAGNESIUM 2.2 mg/dl (1.8-2.4); POTASSIUM 2.9 mmol/L (3.5-5.1)
[2016-06-11] MEDS: GUAIFENESIN 600 MG TABCR PO SCH ×2 (08:47→19:54)
[2016-06-11] MEDS: CEROVITE ADV FORMULA TAB PO SCH (08:47)
[2016-06-11] MEDS: NIFEdipine 30 MG CR TAB PO SCH (08:47)
[2016-06-11] MEDS: CLONIDINE HCL 0.1 MG TAB PO SCH ×2 (08:47→19:54)
[2016-06-11] MEDS: THIAMINE HCL INJ 200 MG in SODIUM CHLORIDE 0.9% 50ML 50 ML IV SCH ×2 (08:55→21:01)
[2016-06-11] MEDS: CHLORDIAZEPOXIDE 25 MG CAP PO SCH ×2 (08:55→19:58)
[2016-06-11] MEDS: POTASSIUM CHLORIDE 20 MEQ TABCR PO SCH ×4 (09:16→19:53)
[2016-06-11 09:27] LABS: COMPLETE YES; LYMPH ABS # 1.41 K/uL (1.2-3.4); LYMPHOCYTE % 7.2 %; METAMYELOCYTE % 3.6 %; MYELOCYTE % 2.7 %; NEUTROPHILS % 83.8 %; TOXIC GRANULATION 1+
--- NOTE | 2016-06-11 10:44 | Psychiatric Progress Notes ---
Psychiatric Progress Note Date of Service Jun 11, 2016. Notes patient seen with liaison nurse, consult dictated. hx of ETOHism and antisocial behavior, some inappropriate affect/disorganization due to sedating meds/librium. Doesn't appear to be in ETOH withdrawal. Neurontin may help sleep and be preferred over any benzos prior to discharge. Currently states he will refuse all services. signed ANY for liaison to converse with daughter, particularly as alluded to possible access to weapons. Denies SI currently and no acute indication for inpatient psych admit.
[2016-06-11] MEDS: LACTOBACILLUS ACIDOPHILUS (FLORANEX) TAB PO SCH ×2 (12:44→17:02)
[2016-06-11 13:25] VITALS: BP 152/68; PULSE 81; TEMP 36.8; O2SAT 95
--- NOTE | 2016-06-11 13:42 | DIAGNOSTIC IMAGING REPORT ---
ABDOMINAL ULTRASOUND COMPLETE HISTORY: Vomiting. Diarrhea. eval for findings worrisome for cirrhosis. COMPARISON: Abdomen and pelvis CT 01/28/2008. FINDINGS: Pancreas: The pancreas demonstrates a normal echotexture. Liver: Top normal in size measuring 18 cm in length. No hepatic masses. No sonographic evidence for cirrhosis. The main portal vein is patent. Gallbladder: Contracted. No definite gallbladder wall thickening. No gallstones. CBD: 4 mm. Kidneys: No hydronephrosis. Spleen: Normal in size. Aorta: Normal in caliber. IVC: Patent. Miscellaneous: Trace fluid at Morison's pouch. IMPRESSION: 1. Normal liver. 2. Contracted gallbladder. No gallstones. 3. Trace fluid at Morison's pouch. Electronically signed by: Liam Meraz M.D. 06/11/2016 1:40 PM Dictated Date/Time: 06/11/2016 1:38 PM
[2016-06-11 15:49] VITALS: BP 139/64; PULSE 85; TEMP 37; O2SAT 95
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
[2016-06-11] MEDS: AMOXICILLIN/CLAVULANATE TAB 875 MG TAB PO SCH (17:02)
[2016-06-11 18:19] LABS: BUN/CREATININE RATIO 18.1 (10-20); CALCIUM 9.2 mg/dl (8.5-10.1); CREATININE 0.76 mg/dl (0.60-1.40); POTASSIUM 3.2 mmol/L (3.5-5.1)
[2016-06-11] MEDS: BOOST VANILLA PO SCH ×2 (19:00)
[2016-06-11 19:21] VITALS: BP 142/66; PULSE 89; TEMP 36.6; O2SAT 96
[2016-06-11 20:03] VITALS: PULSE 84; O2SAT 96
[2016-06-12] VITALS (12 sets, daily range): BP systolic 146–172; BP diastolic 68–99; PULSE 65–78; TEMP 36–36.7; O2SAT 93–98
--- NOTE | 2016-06-12 00:49 | Progress Note ---
Subjective Date of Service: Jun 11, 2016. Subjective Pt evaluation today including: conversation w/ patient, physical exam, chart review, lab review, review of studies (abd u/s), review of inpatient medication list Pain: denies PO Intake: improving Voiding: no voiding problems tele stable overnight feeling better still coughing we spoke briefly about his stressors, depression, etoh abstinence, etc Problem List Medical Problems: (1) Bilateral pneumonia Status: Acute (2) Malnutrition Status: Acute Review of Systems Constitutional: No chills, No fever Respiratory: + cough, + sputum, No dyspnea on exertion Cardiac: No chest pain Abdomen: + diarrhea, No pain Objective Vital Signs Date Time Temp Pulse Resp B/P Pulse Ox O2 Delivery O2 Flow Rate FiO2 06/12/16 00:00 36.5 69 16 146/82 95 Room Air 06/11/16 20:03 84 16 96 Room Air 06/11/16 20:00 Room Air 06/11/16 19:21 36.6 89 18 142/66 96 06/11/16 16:00 Room Air 06/11/16 15:49 37.0 85 22 139/64 95 06/11/16 13:25 36.8 81 16 152/68 95 Room Air 06/11/16 12:00 Room Air 06/11/16 08:00 Room Air 06/11/16 07:36 79 14 96 Room Air 06/11/16 04:00 Room Air 06/11/16 03:15 36.8 61 17 179/92 95 Physical Exam General Appearance: no apparent distress, + pertinent finding (looks better) ENT: pharynx normal, + pertinent finding (poor dentition) Neck: no JVD Respiratory/Chest: no respiratory distress, no accessory muscle use, + rales ( both bases, r>l), + pertinent finding (no wheeze today) Cardiovascular: regular rate, rhythm, no gallop, no murmur Abdomen: normal bowel sounds, non tender, soft, + hepatomegaly (liver edge palpable; no splenomegaly) Extremities: no pedal edema Neurologic/Psychiatric: alert, oriented x 3, + depressed affect Laboratory Results Last 24 Hours Test 06/11/16 07:16 06/11/16 17:45 White Blood Count 19.52 K/uL Red Blood Count 3.54 M/uL Hemoglobin 12.3 g/dL Hematocrit 34.2 % Mean Corpuscular Volume 96.6 fL Mean Corpuscular Hemoglobin 34.7 pg Mean Corpuscular Hemoglobin Concent 36.0 g/dl Platelet Count 266 K/uL Mean Platelet Volume 10.9 fL RDW Standard Deviation 43.4 fL RDW Coefficient of Variation 12.3 % Neutrophils % (Manual) 83.8 % Lymphocytes % (Manual) 7.2 % Monocytes % (Manual) 2.7 % Metamyelocytes % 3.6 % Myelocytes % 2.7 % Neutrophils # (Manual) 16.36 K/uL Total Absolute Neutrophils 16.36 K/uL Lymphocytes # (Manual) 1.41 K/uL Total Absolute Lymphocytes 1.41 K/uL Monocytes # (Manual) 0.53 K/uL Metamyelocytes # 0.70 K/uL Myelocytes # 0.53 K/uL Toxic Granulation 1+ Prothrombin Time 11.3 SECONDS Prothromb Time International Ratio 1.1 Activated Partial Thromboplast Time 25.6 SECONDS Partial Thromboplastin Ratio 1.0 Sodium Level 142 mmol/L 141 mmol/L Potassium Level 2.9 mmol/L 3.2 mmol/L Chloride Level 108 mmol/L 107 mmol/L Carbon Dioxide Level 20 mmol/L 22 mmol/L Anion Gap 14.0 mmol/L 12.0 mmol/L Blood Urea Nitrogen 13 mg/dl 14 mg/dl Creatinine 0.63 mg/dl 0.76 mg/dl Est Creatinine Clear Calc Drug Dose 135.6 ml/min 112.4 ml/min Estimated GFR () 130.4 120.7 Estimated GFR (Non- 112.5 104.2 BUN/Creatinine Ratio 20.6 18.1 Random Glucose 144 mg/dl 159 mg/dl Calcium Level 9.0 mg/dl 9.2 mg/dl Magnesium Level 2.2 mg/dl Total Bilirubin 0.4 mg/dl Direct Bilirubin 0.2 mg/dl Aspartate Amino Transf (AST/SGOT) 359 U/L Alanine Aminotransferase (ALT/SGPT) 331 U/L Alkaline Phosphatase 474 U/L Total Protein 6.0 gm/dl Albumin 1.8 gm/dl Assessment and Plan 51yo male with: 1. acute hypoxic respiratory failure 2nd to b/l community-acquired strep pneumonia - resolved. 2. community acquired pneumonia, b/l, 2nd to strep pneumoniae - stop levaquin, change to augmentin and complete total abx course of 7-10 days. blood cx's neg o2 has been weaned off will need repeat cxr in 4-6 weeks to ensure radiographic resolution 3. wheezing/reactive bronchitis - improved. could have underlying, undiagnosed COPD. stop IV steroids; change to PO prednisone and cont to wean. nebs, mucinex, incentive spirometry 4. abnormal LFTs / acute hepatitis - continue to rise. tylenol? etoh? both? Mucomyst protocol nearly completed (was initiated due to report of significant tylenol use chronically even despite negative tylenol level). repeat LFTs in am checked abdominal u/s and was largely normal repeat INR in am to ensure stability of liver function. 5. hypokalemia - cont to replace by mouth. repeat K later tonight then again in am 6. macrocytic anemia - folic acid supplementation likely 2nd to etoh abuse 7. alcoholism - MVI/thiamine/folic acid supplementation; no withdrawal or DTs while here on librium protocol 8. elevated BP w/o dx of HTN - improved with nifedipine 9. DVT proph - heparin TID 10. FEN - diet as tolerated; replace K; mag is normal. 11. depression - psych consultation appreciated 12. protein calorie malnutrition - mod-severe - MVI, thiamine, folic acid, boost BID asked that the medical software support representative come and meet with him and initiate MA application overall markedly improved hopefully home next 1-2 days Continued [facility] stay due to: multiple IV medications needed Discharge planning: home
[2016-06-12] MEDS: LEVALBUTEROL 1.25MG/0.5ML NEB INH SCH ×4 (02:19→19:29)
[2016-06-12] MEDS: IPRATROPIUM BROMIDE NEB SOLN 0.02% 2.5 ML VIAL INH SCH ×4 (02:19→19:29)
[2016-06-12] MEDS: HEPARIN SOD 5000 UNIT/0.5 ML CARP SQ SCH ×4 (06:00→22:00)
[2016-06-12 07:52] LABS: PROTHROMBIN TIME (PATIENT) 10.3 SECONDS (9.0-12.0)
[2016-06-12 08:13] LABS: BUN/CREATININE RATIO 19.7 (10-20); CREATININE 0.7 mg/dl (0.60-1.40); POTASSIUM 3.4 mmol/L (3.5-5.1)
[2016-06-12] MEDS: AMOXICILLIN/CLAVULANATE TAB 875 MG TAB PO SCH ×2 (08:15→17:03)
[2016-06-12] MEDS: LACTOBACILLUS ACIDOPHILUS (FLORANEX) TAB PO SCH ×3 (08:16→16:45)
[2016-06-12] MEDS: CLONIDINE HCL 0.1 MG TAB PO SCH ×2 (08:17→21:01)
[2016-06-12] MEDS: POTASSIUM CHLORIDE 20 MEQ TABCR PO SCH ×4 (08:20→21:02)
[2016-06-12] MEDS: CHLORDIAZEPOXIDE 25 MG CAP PO SCH (08:20)
[2016-06-12] MEDS: CEROVITE ADV FORMULA TAB PO SCH (08:21)
[2016-06-12] MEDS: GUAIFENESIN 600 MG TABCR PO SCH ×2 (08:21→21:01)
[2016-06-12] MEDS: THIAMINE HCL 100 MG TAB PO SCH ×2 (08:23→21:01)
[2016-06-12] MEDS: NIFEdipine 30 MG CR TAB PO SCH (08:23)
[2016-06-12] MEDS ORDERED: HydrALAZINE HCL 20 MG/ML VIAL IV. PRN (08:45)
[2016-06-12] MEDS: BOOST VANILLA PO SCH ×4 (11:45→19:22)
[2016-06-12] MEDS ORDERED: GABAPENTIN 800 MG TAB PO ONE (14:00)
--- NOTE | 2016-06-12 17:00 | Hospitalist Progress Note ---
Hospitalist Progress Note Date of Service Jun 12, 2016. Subjective Pt evaluation today including: conversation w/ patient, conversation w/ family , physical exam, chart review, lab review, review of studies, review of inpatient medication list Patient feels better, but not yet at his baseline. He tells me that he is through with drinking ETOH and smoking cigarettes. 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 He has no chest pain or SOB. He is still coughing and there is yellow to white mucous expectorating. No fever or chills. Family member was present through out my visit. He has not exhibited signs of ETOH withdraw, but to be on safe side I would like to transition him to gabapentin. He is currently on oral antibiotics. Additional Comments: A 10 system review was performed and all were negative. Positives were placed in the subjective section. Objective Vital Signs Date Time Temp Pulse Resp B/P Pulse Ox O2 Delivery O2 Flow Rate FiO2 06/12/16 15:00 36.5 72 16 95 2.0 06/12/16 14:06 72 16 95 Room Air 06/12/16 12:00 Room Air 06/12/16 11:23 36.5 67 18 154/68 93 Room Air 06/12/16 08:48 98 Room Air 06/12/16 08:00 Room Air 06/12/16 07:53 36.7 78 20 172/93 98 Room Air 06/12/16 07:12 65 16 94 Room Air 06/12/16 04:00 Room Air 06/12/16 03:57 36.4 69 16 153/77 93 Room Air 06/12/16 02:19 66 16 95 Room Air 06/12/16 00:00 Room Air 06/12/16 00:00 36.5 69 16 146/82 95 Room Air 06/11/16 20:03 84 16 96 Room Air 06/11/16 20:00 Room Air 06/11/16 19:21 36.6 89 18 142/66 96 06/11/16 16:00 Room Air 06/11/16 15:49 37.0 85 22 139/64 95 Physical Exam Notes: GEN: Awake, alert, and oriented x 3. Not in acute distress HEENT: Tm's intact, no inflammation, EOMI, PERRLA, MMM Neck: Soft, supple Lungs: CTA b/l, few scattered rhonchi. Heart: REG, nrl S1S2 without murmurs, rubs or gallops Abdomen: Soft, NT, ND, + BS EXT: No C/C/E NEURO: CN's II-XII grossly intact, non-focal Skin: warm, dry, no rashes PSYCH: pleasant, cooperative. Laboratory Results Last 24 Hours Test 06/11/16 17:45 06/12/16 07:17 Sodium Level 141 mmol/L 143 mmol/L Potassium Level 3.2 mmol/L 3.4 mmol/L Chloride Level 107 mmol/L 110 mmol/L Carbon Dioxide Level 22 mmol/L 23 mmol/L Anion Gap 12.0 mmol/L 10.0 mmol/L Blood Urea Nitrogen 14 mg/dl 14 mg/dl Creatinine 0.76 mg/dl 0.70 mg/dl Est Creatinine Clear Calc Drug Dose 112.4 ml/min 122.0 ml/min Estimated GFR () 120.7 124.9 Estimated GFR (Non- 104.2 107.7 BUN/Creatinine Ratio 18.1 19.7 Random Glucose 159 mg/dl 95 mg/dl Calcium Level 9.2 mg/dl 9.0 mg/dl Prothrombin Time 10.3 SECONDS Prothromb Time International Ratio 1.0 Total Bilirubin 0.4 mg/dl Direct Bilirubin 0.1 mg/dl Aspartate Amino Transf (AST/SGOT) 236 U/L Alanine Aminotransferase (ALT/SGPT) 462 U/L Alkaline Phosphatase 451 U/L Total Protein 5.9 gm/dl Albumin 2.0 gm/dl Assessment and Plan 1) Pneumonia - B/L community acquired. Now on oral antibiotics. 2) HTN - On Clonidine, I added prn hydralazine. 3) ETOH cessation - thus far withdraw has been avoided. Reviewing notes from Psych and with the understanding that the patient appears serious about not drinking again, I made switch to gabapentin from librium. I will keep the prn Ativan incase he does show signs of DTs. 4) Smoking cessation 5) Hypokalemia - essentially resolved 6) Hypomag - resolved 7) Hepatitis - overall appears to be improving. DVT prophylaxis - Sub-q heparin.
[2016-06-12] MEDS: GABAPENTIN 400 MG CAP PO SCH (17:03)
[2016-06-13] MEDS: IPRATROPIUM BROMIDE NEB SOLN 0.02% 2.5 ML VIAL INH SCH ×4 (01:28→19:25)
[2016-06-13] MEDS: LEVALBUTEROL 1.25MG/0.5ML NEB INH SCH ×4 (01:28→19:25)
[2016-06-13] MEDS: GABAPENTIN 400 MG CAP PO SCH ×4 (05:54→20:58)
[2016-06-13] MEDS: HEPARIN SOD 5000 UNIT/0.5 ML CARP SQ SCH ×3 (05:55→20:56)
[2016-06-13 06:18] LABS: HEMATOCRIT 38.3 % (42-52); MEAN CELL VOLUME 102.7 fL (80-100); MEAN CORPUSCULAR HEMOGLOBIN 35.7 pg (25-34); MEAN CORPUSCULAR HGB CONC 34.7 g/dl (32-36); MEAN PLATELET VOLUME 11.2 fL (7.4-10.4); PLATELET COUNT 393 K/uL (130-400); RED BLOOD COUNT 3.73 M/uL (4.7-6.1)
[2016-06-13 06:24] LABS: BUN/CREATININE RATIO 21.2 (10-20); CALCIUM 8.8 mg/dl (8.5-10.1); CREATININE 0.68 mg/dl (0.60-1.40); MAGNESIUM 2.1 mg/dl (1.8-2.4); POTASSIUM 4.5 mmol/L (3.5-5.1)
[2016-06-13 06:31] LABS: ALB/GLOB RATIO 0.5 (0.9-2)
[2016-06-13 07:17] VITALS: PULSE 74; O2SAT 92
[2016-06-13 07:38] VITALS: BP 148/78; PULSE 82; TEMP 36.5; O2SAT 98
[2016-06-13] MEDS: CEROVITE ADV FORMULA TAB PO SCH (07:54)
[2016-06-13] MEDS: AMOXICILLIN/CLAVULANATE TAB 875 MG TAB PO SCH (07:54)
[2016-06-13] MEDS: LACTOBACILLUS ACIDOPHILUS (FLORANEX) TAB PO SCH ×3 (07:54→17:41)
[2016-06-13] MEDS: GUAIFENESIN 600 MG TABCR PO SCH ×2 (07:54→20:58)
[2016-06-13] MEDS: CLONIDINE HCL 0.1 MG TAB PO SCH ×2 (07:54→20:58)
[2016-06-13] MEDS: POTASSIUM CHLORIDE 20 MEQ TABCR PO SCH (07:54)
[2016-06-13] MEDS: THIAMINE HCL 100 MG TAB PO SCH ×2 (07:55→20:59)
[2016-06-13] MEDS: NIFEdipine 30 MG CR TAB PO SCH (07:55)
[2016-06-13] MEDS ORDERED: CHLORDIAZEPOXIDE 25 MG CAP PO SCH (08:00)
[2016-06-13 08:38] LABS: LYMPH ABS # 2.79 K/uL (1.2-3.4); LYMPHOCYTE % 8.1 %; META ABS # 1.24 K/uL (0-0); METAMYELOCYTE % 3.6 %; MYELOCYTE % 4.5 %; NEUTROPHILS % 78.4 %; TOXIC GRANULATION 1+
[2016-06-13] MEDS ORDERED: OPTIRAY 320 IV PRN (09:00)
[2016-06-13] MEDS: BOOST VANILLA PO SCH ×4 (10:02→17:24)
[2016-06-13] MEDS ORDERED: LEVALBUTEROL 1.25MG/0.5ML NEB INH PRN (10:15)
[2016-06-13] MEDS ORDERED: IPRATROPIUM BROMIDE NEB SOLN 0.02% 2.5 ML VIAL INH PRN (10:15)
--- NOTE | 2016-06-13 10:29 | DIAGNOSTIC IMAGING REPORT ---
CHEST CT WITH CONTRAST CT DOSE: 269.66 mGycm HISTORY: Bilateral pneumonia on CXR, now with elevated WBC. TECHNIQUE: Multiaxial CT images of the chest were performed following the intravenous administration of contrast. COMPARISON: Chest 06/09/2016. FINDINGS: The central airways are patent. No pleural effusions. No pneumothorax. There are scattered patchy groundglass and consolidative airspace opacities seen throughout the lungs. These are most pronounced within the bilateral lower lobes. Some these areas of consolidation demonstrate small areas of cavitation. Therefore, this favors a necrotizing pneumonia. The main pulmonary arteries are patent. No mediastinal or hilar lymphadenopathy. The visualized liver, spleen, and adrenal glands are unremarkable. IMPRESSION: Multiple scattered patchy groundglass and consolidative airspace opacities seen throughout the lungs which demonstrate a few small areas of cavitation. Therefore, this favors a necrotizing pneumonia. Recommend follow-up to ensure resolution. Electronically signed by: Liam Meraz M.D. 06/13/2016 10:28 AM Dictated Date/Time: 06/13/2016 10:22 AM
[2016-06-13 13:03] LABS: COMPLETE YES
[2016-06-13] MEDS: ERTAPENEM IV 1 GM in SODIUM CHLOR 0.9% AD-VAN 50ML 50 ML IV SCH (13:22)
[2016-06-13 14:06] VITALS: PULSE 86; O2SAT 98
[2016-06-13] MEDS: LEVOFLOXACIN / D5W 500 MG in PREMIXED IN D5W 100 ML IV SCH (15:06)
[2016-06-13 15:09] VITALS: BP 152/81; PULSE 89; TEMP 36.6; O2SAT 95
--- NOTE | 2016-06-13 15:12 | Medical Consult ---
Consultation Date of Consultation: Jun 13, 2016. Attending Physician: Connor Brunner DO Reason for Consultation: nec pneumonia, Strep History of Present Illness 51-year-old male with long smoking history as well as heavy alcohol consumption , but otherwise reported good health, not following with a doctor regularly, who was admitted to the hospital with 1-2 months of progressively worsening cough, shortness of breath, purulent sputum production, mild chest pain, and recent fever. He ultimately came to the emergency department where he was found to have evidence of bilateral pneumonia. He has been treated with a combination of ertapenem and levofloxacin and has clinically improved and now able to walk around and go up and down stairs. He was significantly anorexic, but now eating and drinking better. Sputum cultures have grown a penicillin sensitive strep pneumoniae. Blood cultures have been negative. CT scan, read by me, shows evidence of bilateral pneumonia with early cavitation consistent with a necrotizing pneumonitis. Past Medical/Surgical History Medical Problems: (1) Bilateral pneumonia Status: Acute (2) Malnutrition Status: Acute Medical Problems: (1) Hypokalemia (2) No Known Active Medical Problems (3) Vomiting and diarrhea Family History Patient reports no known family medical history. Social History Smoking Status: Current Every Day Smoker Smokeless Tobacco Use: No Alcohol Use: heavy Marital Status: Occupation Status: unemployed Allergies Coded Allergies: No Known Allergies (Verified Allergy, Unknown, 01/28/08) Current Inpatient Medications Current Inpatient Medications Medications (Trade) Dose Ordered Sig/Tiffany Route Start Time Stop Time Status Last Admin Dose Admin Guaifenesin (Mucinex Contr Rel Tab) 600 mg BID PO 06/09/16 21:00 07/09/16 20:59 06/13/16 07:54 600 MG Ondansetron HCl (Zofran Inj) 4 mg Q6H PRN IV 06/09/16 18:00 07/09/16 17:59 Clonidine HCl (Catapres Tab) 0.2 mg BID PO 06/09/16 21:00 07/09/16 20:59 06/13/16 07:54 0.2 MG Lorazepam 1 mg 1 mg Q2H PRN IV 06/09/16 20:00 07/09/16 19:59 06/10/16 23:08 1 MG Lorazepam/Syringe (Ativan Inj/ Syringe) 1 ml @ 1 mls/min Q2H PRN IV 06/09/16 20:15 07/09/16 20:14 Folic Acid (Folvite Tab) 1 mg QAM PO 06/10/16 09:00 07/10/16 08:59 06/13/16 07:55 1 MG Multivitamins/ Minerals (Multivitamin W/ Minerals Tab) 1 tab QAM PO 06/10/16 09:00 07/10/16 08:59 06/13/16 07:54 1 TAB Nifedipine (Procardia Xl Tab) 30 mg QAM PO 06/11/16 09:00 07/11/16 08:59 06/13/16 07:55 30 MG Heparin Sodium (Porcine) (Heparin Sq 5000 Unit/0.5ml) 5,000 unit Q8 SQ 06/10/16 22:00 07/10/16 21:59 06/11/16 20:39 5,000 UNIT Lactobacillus Acidophilus (Floranex Tab) 4 tab TIDM PO 06/11/16 11:30 07/11/16 11:29 06/13/16 13:22 4 TAB Prednisone (PredniSONE TAB) 40 mg DAILY PO 06/12/16 09:00 06/14/16 07:59 06/13/16 07:55 40 MG Enteral Nutritional Formula (Boost) 1 can BID@1000,1900 PO 06/11/16 19:00 07/11/16 18:59 06/13/16 10:02 1 CAN Thiamine HCl (Vitamin B-1 Tab) 200 mg BID PO 06/12/16 09:00 07/12/16 08:59 06/13/16 07:55 200 MG Hydralazine HCl (HydrALAZINE INJ) 10 mg Q4H PRN IV. 06/12/16 08:45 07/12/16 08:44 Gabapentin (Neurontin Cap) 400 mg Q8@0600,1400,2200 PO 06/13/16 06:00 06/13/16 22:01 06/13/16 13:22 400 MG Gabapentin (Neurontin Cap) 400 mg Q12 PO 06/14/16 09:00 06/14/16 21:01 Gabapentin (Neurontin Cap) 400 mg TODAY@0900 PO 06/15/16 09:00 06/15/16 09:01 Prednisone (PredniSONE TAB) 30 mg DAILY PO 06/14/16 08:00 07/14/16 07:59 Ioversol (Optiray 320) 100 ml UD PRN IV 06/13/16 09:00 06/17/16 08:59 Potassium Chloride (Klor-Con Tab) 40 meq DAILY PO 06/14/16 08:00 07/14/16 07:59 Levalbuterol (Xopenex 1.25MG/ 0.5ML Neb) 1.25 mg Q6RWA INH 06/13/16 15:00 07/13/16 14:59 06/13/16 14:34 1.25 MG Ipratropium [place] (Atrovent 0.02% 0.5MG/2.5ML Neb) 0.5 mg Q6RWA INH 06/13/16 15:00 07/09/16 20:59 06/13/16 14:34 0.5 MG Levalbuterol 1.25 mg 1.25 mg Q2H PRN INH 06/13/16 10:15 07/13/16 10:14 Ertapenem 1 gm/ Sodium Chloride 50 ml @ 120 mls/hr Q24H IV 06/13/16 13:00 06/20/16 12:59 06/13/16 13:22 120 MLS/HR Levofloxacin/Prmx (Levaquin / D5W/ Premixed D5W) 100 ml @ 100 mls/hr Q24H IV 06/13/16 14:00 06/24/16 13:59 Review of Systems Constitutional: + chills, + fatigue, + fever, + weakness Eyes: No problem reported ENT: No problem reported Respiratory: + cough, + dyspnea on exertion, + shortness of breath, + sputum, No hemoptysis Cardiovascular: No problem reported Abdomen: + problem reported (anorexia) Musculoskeletal: + muscle pain Genitourinary - Male: No problem reported Neurologic: No problem reported Psychiatric: No problem reported Endocrine: No problem reported Hematologic / Lymphatic: No problem reported Integumentary: No problem reported Allergic / Immunologic: No problem reported Physical Exam Date Time Temp Pulse Resp B/P Pulse Ox O2 Delivery O2 Flow Rate FiO2 06/13/16 14:06 86 16 98 Room Air 06/13/16 10:00 Room Air 06/13/16 07:38 36.5 82 16 148/78 98 Room Air 06/13/16 07:17 74 16 92 Room Air 06/13/16 01:30 Room Air 06/12/16 23:46 36.0 68 20 167/92 93 Room Air 06/12/16 19:37 66 16 96 Room Air 06/12/16 15:57 Room Air 06/12/16 15:45 36.5 78 20 166/99 94 General Appearance: WD/WN, no apparent distress Head: normocephalic, atraumatic Eyes: normal inspection, EOMI, sclerae normal ENT: normal ENT inspection, hearing grossly normal, pharynx normal Neck: supple, no adenopathy, thyroid normal, trachea midline Respiratory/Chest: chest non-tender, no respiratory distress, no accessory muscle use, + rales Cardiovascular: regular rate, rhythm, no gallop, no murmur Abdomen/GI: normal bowel sounds, non tender, soft, + hepatomegaly Back: normal inspection, no CVA tenderness Extremities/Musculoskelatal: normal inspection, no calf tenderness, normal capillary refill, non-tender Neurologic/Psych: alert, normal mood/affect, oriented x 3 Skin: normal color, warm/dry, no rash Lymphatic: no adenopathy Laboratory Results RUN DATE: 06/11/16 [facility] PAGE 1 RUN TIME: 906 Specimen Inquiry [facility] [id number] LOC: SusanaAleks # : [id number] AGE/SX: 51/M ROOM: [facility] REG : 06/09/[address]: Mono Whitney MD : [id number] BED: 1 DIS : STATUS: ADM IN TLOC: SPEC #: [id number] ELAINE: 06/09/16 STATUS: COMP REQ #: [id number] RECD: 06/09/[address]: Nghia Hinojosa M.D. SOURCE: SPUTUM ENTR: 06/09/[address]: Nereida Ballesteros, Assigned SPDESC: EXP.SPUTUM ORDERED: SPUT CULT/SMR COMMENTS: Has Specimen Been Obtained/Collected? Y Procedure Result Verified Site GRAM STAIN Final 06/10/16-1010 RESULT NO EPITHELIAL CELLS MANY WBCs SEEN MANY GRAM POSITIVE COCCI SPUTUM CULTURE Final 06/11/16 Organism 1 STREP. PNEUMO - PENIC SUSCEPT QUANITY MANY SENS NO SENSITIVITY TO FOLLOW NORMAL DARRION LIGHT NORMAL DARRION Last 24 Hours Test 06/13/16 05:40 White Blood Count 34.40 K/uL Red Blood Count 3.73 M/uL Hemoglobin 13.3 g/dL Hematocrit 38.3 % Mean Corpuscular Volume 102.7 fL Mean Corpuscular Hemoglobin 35.7 pg Mean Corpuscular Hemoglobin Concent 34.7 g/dl Platelet Count 393 K/uL Mean Platelet Volume 11.2 fL RDW Standard Deviation 48.4 fL RDW Coefficient of Variation 12.9 % Nucleated RBC Absolute Count (auto) 0.08 K/uL Neutrophils % (Manual) 78.4 % Lymphocytes % (Manual) 8.1 % Monocytes % (Manual) 3.6 % Metamyelocytes % 3.6 % Myelocytes % 4.5 % Promyelocytes % 1.8 % Nucleated Red Blood Cells % 0.2 % Neutrophils # (Manual) 26.97 K/uL Total Absolute Neutrophils 26.97 K/uL Lymphocytes # (Manual) 2.79 K/uL Total Absolute Lymphocytes 2.79 K/uL Monocytes # (Manual) 1.24 K/uL Metamyelocytes # 1.24 K/uL Myelocytes # 1.55 K/uL Promyelocytes # 0.62 K/uL Blood Smear Review Toxic Granulation 1+ Sodium Level 139 mmol/L Potassium Level 4.5 mmol/L Chloride Level 107 mmol/L Carbon Dioxide Level 27 mmol/L Anion Gap 5.0 mmol/L Blood Urea Nitrogen 14 mg/dl Creatinine 0.68 mg/dl Est Creatinine Clear Calc Drug Dose 125.6 ml/min Estimated GFR () 126.4 Estimated GFR (Non- 109.0 BUN/Creatinine Ratio 21.2 Random Glucose 89 mg/dl Calcium Level 8.8 mg/dl Magnesium Level 2.1 mg/dl Total Bilirubin 0.4 mg/dl Aspartate Amino Transf (AST/SGOT) 74 U/L Alanine Aminotransferase (ALT/SGPT) 361 U/L Alkaline Phosphatase 432 U/L Total Protein 6.3 gm/dl Albumin 2.1 gm/dl Globulin 4.2 gm/dl Albumin/Globulin Ratio 0.[address] WITH CONTRAST CT DOSE: 269.66 mGycm HISTORY: Bilateral pneumonia on CXR, now with elevated WBC. TECHNIQUE: Multiaxial CT images of the chest were performed following the intravenous administration of contrast. COMPARISON: Chest 06/09/2016. FINDINGS: The central airways are patent. No pleural effusions. No pneumothorax. There are scattered patchy groundglass and consolidative airspace opacities seen throughout the lungs. These are most pronounced within the bilateral lower lobes. Some these areas of consolidation demonstrate small areas of cavitation. Therefore, this favors a necrotizing pneumonia. The main pulmonary arteries are patent. No mediastinal or hilar lymphadenopathy. The visualized liver, spleen, and adrenal glands are unremarkable. IMPRESSION: Multiple scattered patchy groundglass and consolidative airspace opacities seen throughout the lungs which demonstrate a few small areas of cavitation. Therefore, this favors a necrotizing pneumonia. Recommend follow-up to ensure resolution. Electronically signed by: Liam Meraz M.D. 06/13/2016 10:28 AM Dictated Date/Time: 06/13/2016 10:22 AM The status of this report Assessment & Plan 51 yo male with necrotizing pneumonia with S. pneumoniae, clinically improving on current therapy. Suspect abrupt rise in WBC is from "steroid effect" but will need to follow. Patient can likely transition to oral levofloxacin in near future. Need to follow serial CXRs. Will follow.
--- NOTE | 2016-06-13 18:46 | Hospitalist Progress Note ---
Hospitalist Progress Note Date of Service Jun 13, 2016. Subjective Pt evaluation today including: conversation w/ patient, physical exam, chart review, lab review, review of studies, review of inpatient medication list Patient is doing well clinically. I ordered a CT scan of the chest today as his WBC count elevated into the 30s. Although likely due to steroid effect, I wanted to make sure the pneumonia is being properly treated. This showed necrotizing pneumonia thus I converted back to IV antibiotic and asked pulm and ID to see. He is coughing up mucous daily. Otherwise he feels fairly well. Additional Comments: A 10 system review was performed and all were negative. Positives were placed in the subjective section. Objective Vital Signs Date Time Temp Pulse Resp B/P Pulse Ox O2 Delivery O2 Flow Rate FiO2 06/13/16 16:56 Room Air 06/13/16 15:09 36.6 89 16 152/81 95 Room Air 06/13/16 14:06 86 16 98 Room Air 06/13/16 10:00 Room Air 06/13/16 07:38 36.5 82 16 148/78 98 Room Air 06/13/16 07:17 74 16 92 Room Air 06/13/16 01:30 Room Air 06/12/16 23:46 36.0 68 20 167/92 93 Room Air 06/12/16 19:37 66 16 96 Room Air Physical Exam Notes: GEN: Awake, alert, and oriented x 3. Not in acute distress HEENT: Tm's intact, no inflammation, EOMI, PERRLA, MMM Neck: Soft, supple Lungs: Scattered rhonchi b/l. Heart: REG, nrl S1S2 without murmurs, rubs or gallops Abdomen: Soft, NT, ND, + BS EXT: No C/C/E NEURO: CN's II-XII grossly intact, non-focal Skin: warm, dry, no rashes PSYCH: pleasant, cooperative, no signs of DTs. Laboratory Results Last 24 Hours Test 06/13/16 05:40 White Blood Count 34.40 K/uL Red Blood Count 3.73 M/uL Hemoglobin 13.3 g/dL Hematocrit 38.3 % Mean Corpuscular Volume 102.7 fL Mean Corpuscular Hemoglobin 35.7 pg Mean Corpuscular Hemoglobin Concent 34.7 g/dl Platelet Count 393 K/uL Mean Platelet Volume 11.2 fL RDW Standard Deviation 48.4 fL RDW Coefficient of Variation 12.9 % Nucleated RBC Absolute Count (auto) 0.08 K/uL Neutrophils % (Manual) 78.4 % Lymphocytes % (Manual) 8.1 % Monocytes % (Manual) 3.6 % Metamyelocytes % 3.6 % Myelocytes % 4.5 % Promyelocytes % 1.8 % Nucleated Red Blood Cells % 0.2 % Neutrophils # (Manual) 26.97 K/uL Total Absolute Neutrophils 26.97 K/uL Lymphocytes # (Manual) 2.79 K/uL Total Absolute Lymphocytes 2.79 K/uL Monocytes # (Manual) 1.24 K/uL Metamyelocytes # 1.24 K/uL Myelocytes # 1.55 K/uL Promyelocytes # 0.62 K/uL Blood Smear Review Toxic Granulation 1+ Sodium Level 139 mmol/L Potassium Level 4.5 mmol/L Chloride Level 107 mmol/L Carbon Dioxide Level 27 mmol/L Anion Gap 5.0 mmol/L Blood Urea Nitrogen 14 mg/dl Creatinine 0.68 mg/dl Est Creatinine Clear Calc Drug Dose 125.6 ml/min Estimated GFR () 126.4 Estimated GFR (Non- 109.0 BUN/Creatinine Ratio 21.2 Random Glucose 89 mg/dl Calcium Level 8.8 mg/dl Magnesium Level 2.1 mg/dl Total Bilirubin 0.4 mg/dl Aspartate Amino Transf (AST/SGOT) 74 U/L Alanine Aminotransferase (ALT/SGPT) 361 U/L Alkaline Phosphatase 432 U/L Total Protein 6.3 gm/dl Albumin 2.1 gm/dl Globulin 4.2 gm/dl Albumin/Globulin Ratio 0.5 Assessment and Plan 1) Pneumonia - necrotizing seen on CT scan. - I ordered IV Ertapenem with pulmonary and ID consult. 2) HTN - On Clonidine, prn hydralazine. 3) ETOH cessation - Neurontin therapy. 4) Smoking cessation - He does not feel that he needs a nicotine patch. 5) Hypokalemia - resolved. 6) Hypomag - resolved 7) Hepatitis - continues to improve. DVT prophylaxis - Sub-q heparin.
[2016-06-13 19:26] VITALS: PULSE 86; O2SAT 98
[2016-06-13 23:23] VITALS: BP 143/80; PULSE 68; TEMP 36.7; O2SAT 97
[2016-06-14] VITALS (7 sets, daily range): BP systolic 104–153; BP diastolic 64–91; PULSE 70–99; TEMP 36.5–36.8; O2SAT 90–99
[2016-06-14] MEDS: LORAZEPAM 2 MG/ML 1 ML VIAL IV PRN (02:35)
[2016-06-14] MEDS: HEPARIN SOD 5000 UNIT/0.5 ML CARP SQ SCH ×3 (05:00→21:21)
[2016-06-14 06:31] LABS: HEMATOCRIT 40.4 % (42-52); MEAN CELL VOLUME 102.8 fL (80-100); MEAN CORPUSCULAR HEMOGLOBIN 35.4 pg (25-34); MEAN CORPUSCULAR HGB CONC 34.4 g/dl (32-36); MEAN PLATELET VOLUME 10.9 fL (7.4-10.4); PLATELET COUNT 471 K/uL (130-400); RED BLOOD COUNT 3.93 M/uL (4.7-6.1); WHITE BLOOD COUNT 41.33 K/uL (4.8-10.8)
[2016-06-14 06:40] LABS: BUN/CREATININE RATIO 23.6 (10-20); CALCIUM 9.3 mg/dl (8.5-10.1); CREATININE 0.67 mg/dl (0.60-1.40); POTASSIUM 4.9 mmol/L (3.5-5.1)
[2016-06-14 06:42] LABS: ALB/GLOB RATIO 0.5 (0.9-2)
[2016-06-14 06:56] LABS: COMPLETE YES; LYMPH ABS # 4.71 K/uL (1.2-3.4); LYMPHOCYTE % 11.4 %; META ABS # 2.19 K/uL (0-0); METAMYELOCYTE % 5.3 %; MYELOCYTE % 7.9 %; NEUTROPHILS % 75.4 %; POLYCHROMASIA 1+; TOXIC GRANULATION 3+; VACUOLIZATION 1+
[2016-06-14] MEDS: LEVALBUTEROL 1.25MG/0.5ML NEB INH SCH ×3 (07:17→20:45)
[2016-06-14] MEDS: IPRATROPIUM BROMIDE NEB SOLN 0.02% 2.5 ML VIAL INH SCH ×3 (07:17→20:45)
[2016-06-14] MEDS: LACTOBACILLUS ACIDOPHILUS (FLORANEX) TAB PO SCH ×3 (08:09→17:26)
[2016-06-14] MEDS: NIFEdipine 30 MG CR TAB PO SCH (08:09)
[2016-06-14] MEDS: POTASSIUM CHLORIDE 20 MEQ TABCR PO SCH (08:09)
[2016-06-14] MEDS: CEROVITE ADV FORMULA TAB PO SCH (08:09)
[2016-06-14] MEDS: THIAMINE HCL 100 MG TAB PO SCH ×2 (08:09→19:36)
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
[2016-06-14] MEDS: GABAPENTIN 400 MG CAP PO SCH ×2 (08:10→21:20)
[2016-06-14] MEDS: CLONIDINE HCL 0.1 MG TAB PO SCH ×2 (08:10→19:36)
[2016-06-14] MEDS: BOOST VANILLA PO SCH ×4 (08:10→19:34)
[2016-06-14] MEDS: GUAIFENESIN 600 MG TABCR PO SCH ×2 (08:10→19:36)
[2016-06-14] MEDS: ERTAPENEM IV 1 GM in SODIUM CHLOR 0.9% AD-VAN 50ML 50 ML IV SCH (12:24)
[2016-06-14] MEDS: LEVOFLOXACIN / D5W 500 MG in PREMIXED IN D5W 100 ML IV SCH (13:51)
--- NOTE | 2016-06-14 16:47 | Hospitalist Progress Note ---
Hospitalist Progress Note Date of Service Jun 14, 2016. Subjective Pt evaluation today including: conversation w/ patient, physical exam, chart review, lab review, review of studies, review of inpatient medication list Patient is feeling remarkably well. He has walked in the hallways and took a shower today. Iv antibiotics were transitioned to oral Levaquin today for a total of 10-14 days course. WBC's elevated further today. I will take Dr. Marin' s advice and ask hematology to evaluate. Patient is asking about return to work when he is discharged. 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 I asked him to change this behavior. Additional Comments: A 10 system review was performed and all were negative. Positives were placed in the subjective section. Objective Vital Signs Date Time Temp Pulse Resp B/P Pulse Ox O2 Delivery O2 Flow Rate FiO2 06/14/16 15:43 36.8 99 16 136/82 99 Room Air 06/14/16 14:20 87 16 95 Room Air 06/14/16 11:15 36.5 88 19 109/74 92 Room Air 06/14/16 09:08 Room Air 06/14/16 08:37 Room Air 06/14/16 08:26 36.5 79 18 153/72 90 Room Air 06/14/16 07:17 70 16 96 Room Air 06/14/16 00:00 Room Air 06/13/16 23:23 36.7 68 20 143/80 97 Room Air 06/13/16 20:00 Room Air 06/13/16 19:26 86 16 98 Room Air 06/13/16 16:56 Room Air Physical Exam Notes: GEN: Awake, alert, and oriented x 3. Not in acute distress HEENT: Tm's intact, no inflammation, EOMI, PERRLA, MMM Neck: Soft, supple Lungs: + exp wheezes b/l. Heart: REG, nrl S1S2 without murmurs, rubs or gallops Abdomen: Soft, NT, ND, + BS EXT: No C/C/E NEURO: CN's II-XII grossly intact, non-focal Skin: warm, dry, no rashes PSYCH: pleasant, cooperative. Laboratory Results Last 24 Hours Test 06/14/16 05:31 White Blood Count 41.33 K/uL Red Blood Count 3.93 M/uL Hemoglobin 13.9 g/dL Hematocrit 40.4 % Mean Corpuscular Volume 102.8 fL Mean Corpuscular Hemoglobin 35.4 pg Mean Corpuscular Hemoglobin Concent 34.4 g/dl Platelet Count 471 K/uL Mean Platelet Volume 10.9 fL RDW Standard Deviation 47.0 fL RDW Coefficient of Variation 12.6 % Nucleated RBC Absolute Count (auto) 0.07 K/uL Neutrophils % (Manual) 75.4 % Lymphocytes % (Manual) 11.4 % Metamyelocytes % 5.3 % Myelocytes % 7.9 % Nucleated Red Blood Cells % 0.2 % Neutrophils # (Manual) 31.16 K/uL Total Absolute Neutrophils 31.16 K/uL Lymphocytes # (Manual) 4.71 K/uL Total Absolute Lymphocytes 4.71 K/uL Metamyelocytes # 2.19 K/uL Myelocytes # 3.27 K/uL Toxic Granulation 3+ Toxic Vacuolation 1+ Polychromasia 1+ Macrocytosis PRESENT Sodium Level 137 mmol/L Potassium Level 4.9 mmol/L Chloride Level 100 mmol/L Carbon Dioxide Level 30 mmol/L Anion Gap 7.0 mmol/L Blood Urea Nitrogen 16 mg/dl Creatinine 0.67 mg/dl Est Creatinine Clear Calc Drug Dose 127.5 ml/min Estimated GFR () 127.1 Estimated GFR (Non- 109.7 BUN/Creatinine Ratio 23.6 Random Glucose 83 mg/dl Calcium Level 9.3 mg/dl Total Bilirubin 0.3 mg/dl Aspartate Amino Transf (AST/SGOT) 50 U/L Alanine Aminotransferase (ALT/SGPT) 296 U/L Alkaline Phosphatase 432 U/L Total Protein 6.8 gm/dl Albumin 2.4 gm/dl Globulin 4.4 gm/dl Albumin/Globulin Ratio 0.5 Assessment and Plan 1) Pneumonia - necrotizing - doing well clinically, now on oral Levaquin. 2) HTN - On Clonidine, prn hydralazine. 3) ETOH cessation - Neurontin therapy, no signs of DTs. 4) Smoking cessation 5) Leukocytosis - felt to be due to infectious process and steroid effect, but has continued to rise. I will ask hematology to evaluate. 6) Hypomag, Hypokalemia - resolved 7) Hepatitis - continues to improve. DVT prophylaxis - Sub-q heparin.
--- NOTE | 2016-06-14 17:23 | Oncology Consultation ---
Oncology/Heme Consultation Date of Consultation: Jun 14, 2016. Attending Physician: Connor Brunner DO Reason for Consultation: Leukocytosis History of Present Illness Mr. Galvin is a 51-year-old gentleman that presented with nausea vomiting and was found to have a pneumonia. Sputum was positive for strep pneumoniae. He is receiving antibiotic therapy but over the past few days his white cell numbers have increased. He has a history of rather significant alcohol usage. In this to about 11 pound weight loss in the past couple of months. He describes a variety of stressors in his life Past Medical/Surgical History Medical Problems: (1) Bilateral pneumonia Status: Acute (2) Malnutrition Status: Acute Family History Patient reports no known family medical history. Social History Positive for smoking and alcohol usage Smoking Status: Current Every Day Smoker Smokeless Tobacco Use: No Alcohol Use: heavy Marital Status: Occupation Status: unemployed Allergies Coded Allergies: No Known Allergies (Verified Allergy, Unknown, 01/28/08) Home Medications No Active Prescriptions or Reported Meds Current Inpatient Medications Current Inpatient Medications Medications (Trade) Dose Ordered Sig/Tifafny Route Start Time Stop Time Status Last Admin Dose Admin Guaifenesin (Mucinex Contr Rel Tab) 600 mg BID PO 06/09/16 21:00 07/09/16 20:59 06/14/16 08:10 600 MG Ondansetron HCl (Zofran Inj) 4 mg Q6H PRN IV 06/09/16 18:00 07/09/16 17:59 Clonidine HCl (Catapres Tab) 0.2 mg BID PO 06/09/16 21:00 07/09/16 20:59 06/14/16 08:10 0.2 MG Lorazepam 1 mg 1 mg Q2H PRN IV 06/09/16 20:00 07/09/16 19:59 06/14/16 02:35 1 MG Lorazepam/Syringe (Ativan Inj/ Syringe) 1 ml @ 1 mls/min Q2H PRN IV 06/09/16 20:15 07/09/16 20:14 Folic Acid (Folvite Tab) 1 mg QAM PO 06/10/16 09:00 07/10/16 08:59 06/14/16 08:09 1 MG Multivitamins/ Minerals (Multivitamin W/ Minerals Tab) 1 tab QAM PO 06/10/16 09:00 07/10/16 08:59 06/14/16 08:09 1 TAB Nifedipine (Procardia Xl Tab) 30 mg QAM PO 06/11/16 09:00 07/11/16 08:59 06/14/16 08:09 30 MG Heparin Sodium (Porcine) (Heparin Sq 5000 Unit/0.5ml) 5,000 unit Q8 SQ 06/10/16 22:00 07/10/16 21:59 06/11/16 20:39 5,000 UNIT Lactobacillus Acidophilus (Floranex Tab) 4 tab TIDM PO 06/11/16 11:30 07/11/16 11:29 06/14/16 12:23 4 TAB Enteral Nutritional Formula (Boost) 1 can BID@1000,1900 PO 06/11/16 19:00 07/11/16 18:59 06/14/16 08:10 1 CAN Thiamine HCl (Vitamin B-1 Tab) 200 mg BID PO 06/12/16 09:00 07/12/16 08:59 06/14/16 08:09 200 MG Hydralazine HCl (HydrALAZINE INJ) 10 mg Q4H PRN IV. 06/12/16 08:45 07/12/16 08:44 Gabapentin (Neurontin Cap) 400 mg Q12 PO 06/14/16 09:00 06/14/16 21:01 06/14/16 08:10 400 MG Gabapentin (Neurontin Cap) 400 mg TODAY@0900 PO 06/15/16 09:00 06/15/16 09:01 Prednisone (PredniSONE TAB) 30 mg DAILY PO 06/14/16 08:00 07/14/16 07:59 06/14/16 08:09 30 MG Ioversol (Optiray 320) 100 ml UD PRN IV 06/13/16 09:00 06/17/16 08:59 Potassium Chloride (Klor-Con Tab) 40 meq DAILY PO 06/14/16 08:00 07/14/16 07:59 06/14/16 08:09 40 MEQ Levalbuterol (Xopenex 1.25MG/ 0.5ML Neb) 1.25 mg Q6RWA INH 06/13/16 15:00 07/13/16 14:59 06/14/16 14:20 1.25 MG Ipratropium [place] (Atrovent 0.02% 0.5MG/2.5ML Neb) 0.5 mg Q6RWA INH 06/13/16 15:00 07/09/16 20:59 06/14/16 14:20 0.5 MG Levalbuterol (Xopenex 1.25MG/ 0.5ML Neb) 1.25 mg Q2H PRN INH 06/13/16 10:15 07/13/16 10:14 Levofloxacin (Levaquin Tab) 750 mg DAILY@11 PO 06/15/16 11:00 06/19/16 11:01 Review of Systems Constitutional: Negative for definite night sweats, or fever. He has had weight loss as stated Eyes: Negative for event change of vision ENT: Negative for epistaxis, nasal discharge, sore throat, or deafness Cardiovascular: Negative for chest pain, palpitations, dizziness, diaphoresis Respiratory: He has had a cough productive of purulent sputum Gastrointestinal: Negative for diarrhea, hematemesis, melena, nausea, vomiting , or dyspepsia. He states his stools were loose but date are not as loose now Integumentary (skin): Negative for rash or jaundice discoloration Genitourinary: Negative for urinary frequency, hematuria, or dysuria Neurological: Negative for weakness, seizure activity, headache, or dizziness Lymphatic/Hematologic: Negative for petechiae, bleeding or new adenopathy Musculoskeletal: Negative for new joint or back pain Allergic/Immunologic: Negative for unusual rash or pruritis. Physical Exam Date Time Temp Pulse Resp B/P Pulse Ox O2 Delivery O2 Flow Rate FiO2 06/14/16 15:43 36.8 99 16 136/82 99 Room Air 06/14/16 14:20 87 16 95 Room Air 06/14/16 11:15 36.5 88 19 109/74 92 Room Air 06/14/16 09:08 Room Air 06/14/16 08:37 Room Air 06/14/16 08:26 36.5 79 18 153/72 90 Room Air 06/14/16 07:17 70 16 96 Room Air 06/14/16 00:00 Room Air 06/13/16 23:23 36.7 68 20 143/80 97 Room Air 06/13/16 20:00 Room Air 06/13/16 19:26 86 16 98 Room Air Constitutional: vitals are stable. Eyes: Eyes are RAMSEY EOMI without conjuctival erythema or icterus. ENT: External examination was negative for masses. He has very poor dentition Neck: Negative for masses or palpable thyromegaly Respiratory: Lung sounds were generally clear but decreased bilaterally with an occasional rel heard particularly on the left Cardiovascular: Heart was RRR without significant murmur, gallops aoe rubs Gastrointestinal: No palpable hepatic or splenomegaly. The abdomen was soft with normal bowel sounds. Lymphatic system: there was no palpable peripheral lymphadenopathy Musculoskeletal System: The musculoskeletal system seemed concordant with age. Skin: The skin was negative for jaundice. Neurologic exam: The exam was negative for any focal findings. Deep tendon reflexes were equal and symmetrical. Psychiatric exam: Was essentially negative with normal mood and effect. Extremities: Negative for edema or erythema Laboratory Results Last 24 Hours Test 06/14/16 05:31 White Blood Count 41.33 K/uL Red Blood Count 3.93 M/uL Hemoglobin 13.9 g/dL Hematocrit 40.4 % Mean Corpuscular Volume 102.8 fL Mean Corpuscular Hemoglobin 35.4 pg Mean Corpuscular Hemoglobin Concent 34.4 g/dl Platelet Count 471 K/uL Mean Platelet Volume 10.9 fL RDW Standard Deviation 47.0 fL RDW Coefficient of Variation 12.6 % Nucleated RBC Absolute Count (auto) 0.07 K/uL Neutrophils % (Manual) 75.4 % Lymphocytes % (Manual) 11.4 % Metamyelocytes % 5.3 % Myelocytes % 7.9 % Nucleated Red Blood Cells % 0.2 % Neutrophils # (Manual) 31.16 K/uL Total Absolute Neutrophils 31.16 K/uL Lymphocytes # (Manual) 4.71 K/uL Total Absolute Lymphocytes 4.71 K/uL Metamyelocytes # 2.19 K/uL Myelocytes # 3.27 K/uL Toxic Granulation 3+ Toxic Vacuolation 1+ Polychromasia 1+ Macrocytosis PRESENT Sodium Level 137 mmol/L Potassium Level 4.9 mmol/L Chloride Level 100 mmol/L Carbon Dioxide Level 30 mmol/L Anion Gap 7.0 mmol/L Blood Urea Nitrogen 16 mg/dl Creatinine 0.67 mg/dl Est Creatinine Clear Calc Drug Dose 127.5 ml/min Estimated GFR () 127.1 Estimated GFR (Non- 109.7 BUN/Creatinine Ratio 23.6 Random Glucose 83 mg/dl Calcium Level 9.3 mg/dl Total Bilirubin 0.3 mg/dl Aspartate Amino Transf (AST/SGOT) 50 U/L Alanine Aminotransferase (ALT/SGPT) 296 U/L Alkaline Phosphatase 432 U/L Total Protein 6.8 gm/dl Albumin 2.4 gm/dl Globulin 4.4 gm/dl Albumin/Globulin Ratio 0.5 Assessment & Plan His leukocytosis appears reactive to the pneumonia that radiologically is felt to have elements of cavitation. Appears to be going along with a mild thrombocytosis. Spleen is normal in size on sonogram. We will order ERIN-2 mutation once again I believe this is a reactive leukocytosis. I like to see another CBC perhaps in 3-4 weeks to be sure that it trends down as his pneumonia is treated. Thank you
--- NOTE | 2016-06-14 22:13 | Infectious Disease Progress Nt ---
Progress Note Date of Service Jun 14, 2016. Subjective Pt evaluation today including: conversation w/ patient, physical exam, chart review, lab review, review of studies, conversation w/ ergonomics consultant, review of inpatient medication list Patient improving steadily. Offers no new complaints. Remains afebrile. Tolerating antibiotics without apparent difficulty. Decreasing cough and shortness of breath All Other Systems: Reviewed and Negative Medications Current Inpatient Medications Medications (Trade) Dose Ordered Sig/Tiffany Route Start Time Stop Time Status Last Admin Dose Admin Guaifenesin (Mucinex Contr Rel Tab) 600 mg BID PO 06/09/16 21:00 07/09/16 20:59 06/14/16 19:36 600 MG Ondansetron HCl (Zofran Inj) 4 mg Q6H PRN IV 06/09/16 18:00 07/09/16 17:59 Clonidine HCl (Catapres Tab) 0.2 mg BID PO 06/09/16 21:00 07/09/16 20:59 06/14/16 19:36 0.2 MG Lorazepam 1 mg 1 mg Q2H PRN IV 06/09/16 20:00 07/09/16 19:59 06/14/16 02:35 1 MG Lorazepam/Syringe (Ativan Inj/ Syringe) 1 ml @ 1 mls/min Q2H PRN IV 06/09/16 20:15 07/09/16 20:14 Folic Acid (Folvite Tab) 1 mg QAM PO 06/10/16 09:00 07/10/16 08:59 06/14/16 08:09 1 MG Multivitamins/ Minerals (Multivitamin W/ Minerals Tab) 1 tab QAM PO 06/10/16 09:00 07/10/16 08:59 06/14/16 08:09 1 TAB Nifedipine (Procardia Xl Tab) 30 mg QAM PO 06/11/16 09:00 07/11/16 08:59 06/14/16 08:09 30 MG Heparin Sodium (Porcine) (Heparin Sq 5000 Unit/0.5ml) 5,000 unit Q8 SQ 06/10/16 22:00 07/10/16 21:59 06/11/16 20:39 5,000 UNIT Lactobacillus Acidophilus (Floranex Tab) 4 tab TIDM PO 06/11/16 11:30 07/11/16 11:29 06/14/16 17:26 4 TAB Enteral Nutritional Formula (Boost) 1 can BID@1000,1900 PO 06/11/16 19:00 07/11/16 18:59 06/14/16 19:34 1 CAN Thiamine HCl (Vitamin B-1 Tab) 200 mg BID PO 06/12/16 09:00 07/12/16 08:59 06/14/16 19:36 200 MG Hydralazine HCl (HydrALAZINE INJ) 10 mg Q4H PRN IV. 06/12/16 08:45 07/12/16 08:44 Gabapentin (Neurontin Cap) 400 mg TODAY@0900 PO 06/15/16 09:00 06/15/16 09:01 Prednisone (PredniSONE TAB) 30 mg DAILY PO 06/14/16 08:00 07/14/16 07:59 06/14/16 08:09 30 MG Ioversol (Optiray 320) 100 ml UD PRN IV 06/13/16 09:00 06/17/16 08:59 Potassium Chloride (Klor-Con Tab) 40 meq DAILY PO 06/14/16 08:00 07/14/16 07:59 06/14/16 08:09 40 MEQ Levalbuterol (Xopenex 1.25MG/ 0.5ML Neb) 1.25 mg Q6RWA INH 06/13/16 15:00 07/13/16 14:59 06/14/16 20:45 1.25 MG Ipratropium [place] (Atrovent 0.02% 0.5MG/2.5ML Neb) 0.5 mg Q6RWA INH 06/13/16 15:00 07/09/16 20:59 06/14/16 20:45 0.5 MG Levalbuterol (Xopenex 1.25MG/ 0.5ML Neb) 1.25 mg Q2H PRN INH 06/13/16 10:15 07/13/16 10:14 Levofloxacin (Levaquin Tab) 750 mg DAILY@11 PO 06/15/16 11:00 06/19/16 11:01 Objective Vital Signs Date Time Temp Pulse Resp B/P Pulse Ox O2 Delivery O2 Flow Rate FiO2 06/14/16 20:46 82 16 96 Room Air 06/14/16 16:10 Room Air 3/23/17 15:43 36.8 99 16 136/82 99 Room Air 06/14/16 14:20 87 16 95 Room Air 06/14/16 11:15 36.5 88 19 109/74 92 Room Air 06/14/16 09:08 Room Air 06/14/16 08:37 Room Air 06/14/16 08:26 36.5 79 18 153/72 90 Room Air 06/14/16 07:17 70 16 96 Room Air 06/14/16 00:00 Room Air 06/13/16 23:23 36.7 68 20 143/80 97 Room Air Physical Exam General Appearance: WD/WN, no apparent distress Eyes: normal inspection, EOMI, sclerae normal ENT: normal ENT inspection, hearing grossly normal, pharynx normal Neck: supple, no adenopathy, trachea midline Respiratory/Chest: chest non-tender, no respiratory distress, no accessory muscle use, + rales Cardiovascular: regular rate, rhythm, no gallop, no murmur Abdomen: normal bowel sounds, non tender, soft, no organomegaly Extremities: non-tender, no calf tenderness Neurologic/Psychiatric: alert, normal mood/affect, oriented x 3 Skin: normal color, warm/dry, no rash Lymphatic: no adenopathy Laboratory Results Last 24 Hours Test 06/14/16 05:31 White Blood Count 41.33 K/uL Red Blood Count 3.93 M/uL Hemoglobin 13.9 g/dL Hematocrit 40.4 % Mean Corpuscular Volume 102.8 fL Mean Corpuscular Hemoglobin 35.4 pg Mean Corpuscular Hemoglobin Concent 34.4 g/dl Platelet Count 471 K/uL Mean Platelet Volume 10.9 fL RDW Standard Deviation 47.0 fL RDW Coefficient of Variation 12.6 % Nucleated RBC Absolute Count (auto) 0.07 K/uL Neutrophils % (Manual) 75.4 % Lymphocytes % (Manual) 11.4 % Metamyelocytes % 5.3 % Myelocytes % 7.9 % Nucleated Red Blood Cells % 0.2 % Neutrophils # (Manual) 31.16 K/uL Total Absolute Neutrophils 31.16 K/uL Lymphocytes # (Manual) 4.71 K/uL Total Absolute Lymphocytes 4.71 K/uL Metamyelocytes # 2.19 K/uL Myelocytes # 3.27 K/uL Toxic Granulation 3+ Toxic Vacuolation 1+ Polychromasia 1+ Macrocytosis PRESENT Sodium Level 137 mmol/L Potassium Level 4.9 mmol/L Chloride Level 100 mmol/L Carbon Dioxide Level 30 mmol/L Anion Gap 7.0 mmol/L Blood Urea Nitrogen 16 mg/dl Creatinine 0.67 mg/dl Est Creatinine Clear Calc Drug Dose 127.5 ml/min Estimated GFR () 127.1 Estimated GFR (Non- 109.7 BUN/Creatinine Ratio 23.6 Random Glucose 83 mg/dl Calcium Level 9.3 mg/dl Total Bilirubin 0.3 mg/dl Aspartate Amino Transf (AST/SGOT) 50 U/L Alanine Aminotransferase (ALT/SGPT) 296 U/L Alkaline Phosphatase 432 U/L Total Protein 6.8 gm/dl Albumin 2.4 gm/dl Globulin 4.4 gm/dl Albumin/Globulin Ratio 0.5 Assessment and Plan 51 yo male with necrotizing pneumonia with S. pneumoniae, clinically improving on current therapy. Suspect abrupt rise in WBC is from "steroid effect" but will need to follow. Patient will be transitioned to oral levofloxacin 750 mg po daily to complete 7 days Rx. Will follow.
[2016-06-15] MEDS: HEPARIN SOD 5000 UNIT/0.5 ML CARP SQ SCH ×2 (06:00→12:16)
[2016-06-15 07:28] LABS: BUN/CREATININE RATIO 24.2 (10-20); C-REACTIVE PROTEIN 1.4 mg/dl (0-0.29); CALCIUM 9.6 mg/dl (8.5-10.1); CREATININE 0.84 mg/dl (0.60-1.40); POTASSIUM 4.5 mmol/L (3.5-5.1)
[2016-06-15 07:30] LABS: ALB/GLOB RATIO 0.6 (0.9-2)
[2016-06-15 07:34] VITALS: BP 138/85; PULSE 87; TEMP 36.5; O2SAT 94
[2016-06-15] MEDS: LEVALBUTEROL 1.25MG/0.5ML NEB INH SCH (08:01)
[2016-06-15] MEDS: IPRATROPIUM BROMIDE NEB SOLN 0.02% 2.5 ML VIAL INH SCH (08:01)
[2016-06-15 08:02] VITALS: PULSE 88; O2SAT 92
[2016-06-15 08:02] LABS: HEMATOCRIT 44.2 % (42-52); MEAN CELL VOLUME 104.5 fL (80-100); MEAN CORPUSCULAR HEMOGLOBIN 35.5 pg (25-34); MEAN CORPUSCULAR HGB CONC 33.9 g/dl (32-36); MEAN PLATELET VOLUME 10.9 fL (7.4-10.4); PLATELET COUNT 573 K/uL (130-400); RED BLOOD COUNT 4.23 M/uL (4.7-6.1); WHITE BLOOD COUNT 36.33 K/uL (4.8-10.8)
[2016-06-15 08:03] LABS: COMPLETE YES; LYMPH ABS # 2.91 K/uL (1.2-3.4); META ABS # 4.54 K/uL (0-0); METAMYELOCYTE % 12.5 %; MYELOCYTE % 6.3 %; NEUTROPHILS % 71.4 %
[2016-06-15] MEDS: NIFEdipine 30 MG CR TAB PO SCH (08:31)
[2016-06-15] MEDS: CLONIDINE HCL 0.1 MG TAB PO SCH (08:31)
[2016-06-15] MEDS: CEROVITE ADV FORMULA TAB PO SCH (08:31)
[2016-06-15] MEDS: THIAMINE HCL 100 MG TAB PO SCH (08:32)
[2016-06-15] MEDS: POTASSIUM CHLORIDE 20 MEQ TABCR PO SCH (08:32)
[2016-06-15] MEDS: GUAIFENESIN 600 MG TABCR PO SCH (08:33)
[2016-06-15] MEDS: LACTOBACILLUS ACIDOPHILUS (FLORANEX) TAB PO SCH ×2 (08:33→12:16)
[2016-06-15] MEDS: BOOST VANILLA PO SCH ×2 (08:33)
[2016-06-15] MEDS ORDERED: GABAPENTIN 400 MG CAP PO SCH (09:00)
[2016-06-15] MEDS ORDERED: LEVOFLOXACIN 750 MG TAB PO SCH (11:00)
[2016-06-15] MEDS ORDERED: CTP1 PO (12:09)
[2016-06-15] MEDS ORDERED: LVQ750 PO (12:09)
[2016-06-15] MEDS ORDERED: NIFE1TAB13 PO (12:09)
[2016-06-15] MEDS ORDERED: PRED10TA PO (12:09)
--- NOTE | 2016-06-15 12:20 | Discharge Instructions ---
Discharge Instructions Date of Service Jun 15, 2016. Admission Reason for Admission: Hypokalemia, Vomiting And Diarrhea Discharge Discharge Diagnosis / Problem: Pneumonia/Hypokalemia/Leukocytosis Discharge Goals Goal(s): Improve function, Improve disease control Activity Recommendations Activity Limitations: resume your previous activity . Instructions / Follow-Up Instructions / Follow-Up Follow up with PCP in 5-7 days. You mentioned about getting appointment with a [facility] physician near your place of residence. Current Hospital Diet Patient's current hospital diet: Regular Diet Discharge Diet Recommended Diet: Regular Diet Procedures Procedures Performed: none. Pending Studies Studies pending at discharge: yes List of pending studies: Alec-2 mutation - ordered by Dr. Mercado, electromechanical technologist. Laboratory Results Last 24 Hours Test 06/15/16 06:35 White Blood Count 36.33 K/uL Red Blood Count 4.23 M/uL Hemoglobin 15.0 g/dL Hematocrit 44.2 % Mean Corpuscular Volume 104.5 fL Mean Corpuscular Hemoglobin 35.5 pg Mean Corpuscular Hemoglobin Concent 33.9 g/dl Platelet Count 573 K/uL Mean Platelet Volume 10.9 fL RDW Standard Deviation 48.8 fL RDW Coefficient of Variation 12.9 % Neutrophils % (Manual) 71.4 % Lymphocytes % (Manual) 8.0 % Monocytes % (Manual) 1.8 % Metamyelocytes % 12.5 % Myelocytes % 6.3 % Neutrophils # (Manual) 25.94 K/uL Total Absolute Neutrophils 25.94 K/uL Lymphocytes # (Manual) 2.91 K/uL Total Absolute Lymphocytes 2.91 K/uL Monocytes # (Manual) 0.65 K/uL Metamyelocytes # 4.54 K/uL Myelocytes # 2.29 K/uL Red Blood Cell Morphology Unremarkable Erythrocyte Sedimentation Rate 56 mm/hr Sodium Level 134 mmol/L Potassium Level 4.5 mmol/L Chloride Level 98 mmol/L Carbon Dioxide Level 27 mmol/L Anion Gap 9.0 mmol/L Blood Urea Nitrogen 20 mg/dl Creatinine 0.84 mg/dl Est Creatinine Clear Calc Drug Dose 101.7 ml/min Estimated GFR () 115.9 Estimated GFR (Non- 100.0 BUN/Creatinine Ratio 24.2 Random Glucose 92 mg/dl Calcium Level 9.6 mg/dl Total Bilirubin 0.4 mg/dl Aspartate Amino Transf (AST/SGOT) 79 U/L Alanine Aminotransferase (ALT/SGPT) 308 U/L Alkaline Phosphatase 437 U/L C-Reactive Protein 1.40 mg/dl Total Protein 7.4 gm/dl Albumin 2.8 gm/dl Globulin 4.6 gm/dl Albumin/Globulin Ratio 0.6 Work Instructions Return To Work: 1 week Additional Instructions: May return to work full duty (No restrictions) on Saturday June 25, 2016. Medical Emergencies . Who to Call and When: Medical Emergencies: If at any time you feel your situation is an emergency, please call 911 immediately. . Non-Emergent Contact Non-Emergency issues call your: Primary Care Provider . . "Provider Documentation" section prepared by Connor Brunner. VTE Core Measure Inpt VTE Proph given/why not?: Unfractionated heparin SQ, SCD's
[2016-06-15 12:30] VITALS: BP 138/85; PULSE 88; TEMP 36.5; O2SAT 92
--- NOTE | 2016-06-17 20:15 | Discharge Summary ---
Discharge Summary Date of Service Jun 17, 2016. Discharge Summary Admission Date: Jun 09, 2016 at 17:48 Discharge Date: Jun 15, 2016 Discharge Disposition: Home Principal Diagnosis: B/L pneumonia Problems/Secondary Diagnoses: COPD exacerbation/ETOH cessation/hypokalemia/Smoking cessation Immunizations: Have You Had Influenza Vaccine: No History of Tetanus Vaccine?: No History of Pneumococcal: No History of Hepatitis B Vaccine: No Procedures: None. Consultations: Dr. Marin, pulmonology Dr. Cesar, Infectious disease. Medication Reconciliation New Medications: Prednisone (Prednisone) 10 Mg Tab 10 MG PO DIRECTED for 10 Days, #17 TAB NS Clonidine HCl (Clonidine HCl) 0.1 Mg Tab 0.2 MG PO BID for 30 Days, #120 TAB 0 Refills Levofloxacin (Levofloxacin) 750 Mg Tab 750 MG PO DAILY@11 for 7 Days, #7 TAB 0 Refills Nifedipine (Adalat cc) 30 Mg Tab 30 MG PO QAM for 30 Days, #30 TAB 0 Refills Discharge Exam A 10 system review was performed and all were negative. GEN: Awake, alert, and oriented x 3. Not in acute distress HEENT: Tm's intact, no inflammation, EOMI, PERRLA, MMM Neck: Soft, supple Lungs: + expiratory wheezes b/l. Heart: REG, nrl S1S2 without murmurs, rubs or gallops Abdomen: Soft, NT, ND, + BS EXT: No C/C/E NEURO: CN's II-XII grossly intact, non-focal Skin: warm, dry, no rashes PSYCH: pleasant, cooperative, no signs of significant anxiety or depression. Hospital Course Patient was admitted with pneumonia and COPD exacerbation. He had reported becoming depressed and was drinking ETOH daily and had restarted smoking. His potassium on admission was 2.5. With replacement this improved. At discharge, his potassium was 4.5. He was initially treated with IV Vancomycin and IV Zosyn. The patient improved and was switched to oral Augmentin. While on this , I noted that his WBC count elevated rather acutely and interestingly high. It was felt that this represented demargination from steroids and the acute illness. It prompted a CT scan of the lungs which revealed a necrotizing pneumonia. I then placed the patient on to IV Levaquin and asked pulm and ID to see. It was felt that after 3 days of IV Levaquin that he could be switched to oral. Hematology was consulted as his white count remained high for 3 days but was coming down. Dr. Mercado felt too that this finding was reactive. He did order a ERIN-2 mutation which was pending at the time of discharge. He recommended having a CBC performed in 3-4 week from now. OTher issues for the patient are listed below. HTN - On Clonidine and Adalat CC ETOH cessation - Neurontin therapy during hospitalization. Patient declined needing this at discharge. Smoking cessation - Patient feels he will be motivated to refrain. Hypomag, Hypokalemia - resolved Hepatitis - felt due to daily ETOH intake. LFTs were coming down daily and were near normal at discharge. DVT prophylaxis - Sub-q heparin. Total Time Spent: Greater than 30 minutes This includes examination of the patient, discharge planning, medication reconciliation, and communication with other providers. Discharge Instructions Please refer to the electronic Patient Visit Report (Discharge Instructions) for additional information. Follow-Up PCP in 5-7 days - we offered to set up appointment for patient, but he wished to do himself.
[2016-06-25 07:02] LABS: NEO CAL-R MOLECULAR See Separate Report; NEO MPL W515 See Separate Report
[2016-06-25 07:10] LABS: NEO JAK2 V617F MUT QUANT MOLEC See Separate Report
== END 2016-06-15 13:34 | disposition home or self-care (01) | DRG 193 ==
LOC: ENRESERVDT → ENRESERVTM → C.EDB 14:27 → C.2T 17:48 → C.4E 06-12 15:24
PROVIDERS: ADMIT Hospitalist; ATTEND Hospitalist
DX: J13 Pneumonia due to Streptococcus pneumoniae (principal); E43 Unspecified severe protein-calorie malnutrition; J96.01 Acute respiratory failure with hypoxia; D72.829 Elevated white blood cell count, unspecified; E87.6 Hypokalemia; F17.210 Nicotine dependence, cigarettes, uncomplicated; F32.9 Major depressive disorder, single episode, unspecified; Z68.24 Body mass index [BMI] 24.0-24.9, adult; G47.00 Insomnia, unspecified; D53.9 Nutritional anemia, unspecified; I10 Essential (primary) hypertension; E83.42 Hypomagnesemia; K75.9 Inflammatory liver disease, unspecified; F10.20 Alcohol dependence, uncomplicated